=== PATIENT | female | born 1950 | race Caucasian/White ===

== ENCOUNTER 2016-08-08 12:13 | Emergency (ER) | payer OTHER, BC ==
--- NOTE | 2016-08-08 12:58 | EDPHY ---
H & P Time Seen by Provider: 08/08/16 12:40 HPI/ROS: HPI: 58-year-old female presents to emergency department with chief concern left groin pain that is 8/10 and onset suddenly last night. Pain radiates from the left groin to the left outer hip. It is worse with ambulation. She has taken [place] with some relief. She has a history of left foot fracture 7 months ago, with increase of pain and swelling 1 month ago. Saw their orthopedist Dr. Slater who x-rayed the left foot and did not find an occult or stress fracture. Walked 1.5 miles yesterday in the orthopedic walking boot. Denies fever, chills , myalgias, URI symptoms, shortness of breath, chest pain, abdominal pain, nausea, vomiting, left calf pain, recent travel, history of coagulopathy. History of profound anxiety. ROS:10 point review of systems is negative other than as stated in HPI Past Medical/Surgical History: Left foot fracture, anxiety, rectal prolapse surgery with complications Social History: Smoking Status: Never smoked Physical Exam: Vital signs stable, reviewed by me General: Awake, alert, calm, cooperative. No acute distress. Head: Normalocephalic. Atraumatic. EENT: PERRLA. EOMI. Neck: Supple, nontender. No midline tenderness, full ROM. Respiratory: Breathing unlabored. Breath sounds clear to auscultation bilaterally. CV: Chest nontender, atraumatic. Heart rate regular. Distal pulses 2+. Brisk cap refill all extremities. GI: Deferred Neuro: Alert. Oriented x 3. Sensation intact all extremities. Skin: Skin warm, dry, intact. No ecchymosis, abrasions, or lacerations. Extremities: No discomfort to palpation of the left leg, left knee, left ankle. Full range of motion. Pain left groin. Left femoral pulse 2 +. No mass. Discomfort with external rotation only. No swelling or ecchymosis. No lymphadenopathy appreciated. Left foot with pain in the midfoot. Mild ecchymosis and swelling present. Positive mid foot torsion. Negative pain at the proximal 5th metatarsal. Strength 5+ left lower extremity. No discomfort of the left calf. Negative Homans. Constitutional: Initial Vital Signs Temperature (C) 36.5 C 08/08/16 12:18 Heart Rate 84 03/31/17 12:18 Respiratory Rate 20 08/08/16 12:18 Blood Pressure 145/84 H 08/08/16 12:18 O2 Sat (%) 96 08/08/16 12:18 O2 Delivery Mode Room Air Allergies/Adverse Reactions: promethazine [From Phenergan] Allergy (Verified 08/08/16 12:17) Sulfa (Sulfonamide Antibiotics) Allergy (Verified 08/08/16 12:17) Home Medications: Medication Instructions Recorded Ambien 08/08/16 Hydrocodone/APAP 5/325 [[place] 1 tab PO Q4H PRN #16 tab 08/08/16 5/325 (*)] Nortriptyline HCl 08/08/16 Xanax 08/08/16 traZODone 08/08/16 Medical Decision Making - Diagnostics Imagin. Left Foot , 2 portable views History:Pain without trauma. Findings: There is a subacute, healing, complex fracture of the distal second metatarsal shaft with surrounding periosteal new bone. Fracture lines are still visible. There is no angulation or displacement. There is a solidly healed distal fifth metatarsal fracture. 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 No acute fracture identified. Impression: Subacute healing second metatarsal shaft fracture. 2. Left Hip Technique: Portable AP pelvis and frog-leg left hip. Clinical Indications: Pain without trauma Findings: No fracture. Thickness of the hip joint is normal, with no sclerosis or significant osteophytes. No evidence of avascular necrosis. The SI joints look normal. There is erosive change on either side of the pubic symphysis. There are bilateral low pelvic surgical anastomoses. Impression: 1. Negative left hip 2. Might the patient's hip pain be referred from the pubic symphysis? Dictated By: Portillo Dwyer MD ED Course/Re-evaluation: 58-year-old female presents to ED with left groin pain. There is no ecchymosis or swelling. Pain is isolated to the left groin and radiates laterally to left hip. Pain is worse with ambulation and external rotation. She had recent left foot fracture 7 months ago with a re-injure of the site 1 month ago with ongoing swelling and pain. She walked 1.5 miles yesterday in a orthopedic boot. Pain onset suddenly last night. DP and PT pulses are 2+. Neurovascular status intact. No personal or family history of coagulopathy. No appreciable lymphadenopathy in the left groin. Differential Diagnosis: Differential diagnosis includes but is not limited to strain, fracture, dislocation, DVT, lymphadenopathy, lumbar radiculopathy, infection - Data Points Medications Given: Discontinued Medications Hydrocodone Bitart/Acetaminophen ([place] 5/325) 1 tab PO EDNOW ONE Stop: 08/08/16 13:30 Last Admin: 08/08/16 13:32 Dose: 1 tab Departure - Departure Disposition: Home, Routine, Self-Care Clinical Impression: Left groin pain, subacute left foot fracture Condition: Good Instructions: Foot Fracture in Adults (ED), Groin Pain (ED) Additional Instructions: Plan: 400 mg ibuprofen every 6-8 hours with food for inflammation and pain, stay well hydrated while taking, may use for the next 3-4 days May use 1 [place] every 4-6 hours as needed for severe pain--Never drink or drive while taking this medication. This medication impairs decision making capacity so do not work or sign important documents while taking. This medication its constipating so drink plenty of fluids and consider an [id number] stool softener such as docusate sodium (Colace) while taking this medication. This medication has addictive properties. You should use the least amount for the shortest amount of time. [facility] ED and [facility]gent [facility] do not refill narcotic pain medication prescriptions. This is a hospital policy. You will need to follow up as indicated for recheck for further narcotic refills. Use cane for ambulation while pain persists, use your walking boot while up and about Follow up with your orthopedist Dr. Slater next week for recheck--When you call to schedule appointment, please let the office know you are an "ER follow up" appointment" For severe, unremitting, worsening symptoms return to emergency department Referrals: Kathia Cardozo MD [Primary Care Provider] - As per Instructions Prescriptions: Hydrocodone/APAP 5/325 [[place] 5/325 (*)] 1 tab PO Q4H PRN #16 tab PRN Reason: severe pain
[2016-08-08] MEDS ORDERED: HYDROCODONE/APAP 5/325 TAB ONE (13:27)
[2016-08-08] MEDS ORDERED: HYDROCODONE/APAP 5/325 TAB PO ONE (13:29)
[2016-08-08 14:25] VITALS: BP 165/105; PULSE 71; RESP 16; TEMP 98.1; O2SAT 95
== END 2016-08-08 14:25 | disposition home or self-care (01) ==
DX: R10.32 Left lower quadrant pain (principal); M79.672 Pain in left foot

== ENCOUNTER 2016-10-21 17:05 | Emergency (ER) | payer OTHER, BC ==
[2016-10-21] MEDS ORDERED: LORazepam 2 MG/ML INJ IVP ONE (17:31)
[2016-10-21] MEDS ORDERED: NS 1,000 ML IV ONE (17:31)
--- NOTE | 2016-10-21 17:31 | CPEKG ---
Heart Rate: 83 RR Interval: 723 P-R Interval: 164 QRSD Interval: 80 QT Interval: 380 QTC Interval: 447 P [place]: 67 QRS [place]: 64 T Wave [place]: 76 EKG Severity - NORMAL ECG - EKG Impression: SINUS RHYTHM Electronically Signed By: Ahmet Padilla 22-Oct-2016 16:53:49
[2016-10-21] MEDS ORDERED: HYDROmorphONE/DILAUDID 1 MG/ML SYR IVP ONE (17:32)
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
[2016-10-21 17:47] LABS: % IMMATURE GRANULYOCYTES 0.2 % (0.0-1.1); ABSOLUTE IMMATURE GRANULOCYTES 0.02 10^3/uL (0.00-0.10); ADD DIFF? NO; ADD MORPH? NO; ADD SCAN? NO; ATYPICAL LYMPHOCYTE FLAG 10 (0-99); FRAGMENT RBC FLAG 0 (0-99); HEMATOCRIT 39.1 % (38.0-47.0); HEMOGLOBIN 13.8 g/dL (12.6-16.3); LEFT SHIFT FLG 0 (0-99); LIPEMIA HEMOLYSIS FLAG 90 (0-99); MEAN CELL HEMOGLOBIN 33.4 pg (27.9-34.1); MEAN CELL HEMOGLOBIN CONCENTR. 35.3 g/dL (32.4-36.7); MEAN CELL VOLUME 94.7 fL (81.5-99.8); MEAN PLATELET VOLUME 9.9 fL (8.7-11.7); PLATELET CLUMPS FLAG 0 (0-99); PLATELET COUNT 205 10^3/uL (150-400); RED BLOOD CELL COUNT 4.13 10^6/uL (4.18-5.33); RED CELL DISTRIBUTION WIDTH 12.6 % (11.5-15.2)
[2016-10-21 17:58] LABS: ALANINE AMINOTRANSFERASE 29 IU/L (9-52); ALBUMIN 4.4 g/dL (3.5-5.0); ALKALINE PHOSPHATASE 60 IU/L (38-126); ANION GAP 10 mEq/L (8-16); ASPARTATE AMINOTRANSFERASE 27 IU/L (14-46); BILIRUBIN,TOTAL 0.6 mg/dL (0.1-1.4); BILIRUBIN-CONJUGATED 0.3 mg/dL (0.0-0.5); BILIRUBIN-UNCONJUGATED 0.3 mg/dL (0.0-1.1); CALCIUM 9.7 mg/dL (8.5-10.4); CARBON DIOXIDE 22 mEq/l (22-31); CHLORIDE 101 mEq/L (97-110); CREATININE 0.9 mg/dL (0.6-1.0); GLOMERULAR FILTRATION RATE > 60; GLUCOSE 67 mg/dL (70-100); POTASSIUM 4.1 mEq/L (3.5-5.2); SODIUM 133 mEq/L (134-144); TOTAL PROTEIN 7.1 g/dL (6.3-8.2)
[2016-10-21] MEDS ORDERED: IOPAMIDOL (ISOVUE 370) 100 ML BTL IV ONE (18:04)
[2016-10-21 18:10] LABS: TROPONIN I < 0.012 ng/mL (0-0.034)
[2016-10-21 18:22] LABS: APTT 26.9 SEC (23.0-38.0); PROTIME(PATIENT) 13.1 SEC (12.0-15.0)
[2016-10-21 19:28] VITALS: BP 135/99; PULSE 69; RESP 18; TEMP 98.1; O2SAT 100
== END 2016-10-21 19:27 | disposition home or self-care (01) ==
DX: S32.008A Other fracture of unspecified lumbar vertebra, initial encounter for closed fracture (principal); R55 Syncope and collapse; E86.0 Dehydration; W19.XXXA Unspecified fall, initial encounter; Y92.002 Bathroom of unspecified non-institutional (private) residence as the place of occurrence of the external cause
CPT/HCPCS: 71275; 72131; 93005; 96361; 96374; 96375; 99285; J1170; J2060; Q9967

== ENCOUNTER 2017-06-18 14:48 | Inpatient (IN) | payer OTHER, BC ==
[2017-06-18] MEDS ORDERED: ONDANSETRON 4 MG/2 ML VIAL ONE (15:00)
--- NOTE | 2017-06-18 15:11 | EDPHY ---
H & P Smoking Status: Never smoked Time Seen by Provider: 06/18/17 14:55 HPI/ROS: Chief complaint. Probable overdose HPI. Patient is 66-year-old female who only says "I am so sick ". She does not answer any questions. Her daughter is here with her and provides history. The daughter says that the patient has history of severe anxiety. The had prostate surgery yesterday and there has been increased anxiety in the household. Patient has had a history of chronic abdominal pain has had abdominal pain for the last 2-3 days. The daughter reports initially patient was constipated though now has had diarrhea. She has had decreased oral intake. At about 1:00 p.m. the patient was very anxious and went and took some or all of the medications. Daughter is not quite sure everything she took. There were no other medications of the that would have been taken. Doubt alcohol consumption. Patient apparently has a history of abdominal surgery and maybe was complicated by volvulus. At any rate she does have chronic abdominal pain. After the ingestion the patient's daughter notes that she began gradually less responsive. It is unknown whether this is an intentional or accidental overdose. She has had previous suicide ideation for attention. ROS Constitutional. Decreased responsiveness Eyes. no problems with vision ENT. no sore throat, no nasal drainage Cardiovascular. no chest pain Respiratory. no shortness of breath, no cough Abdominal. Abdominal pain and diarrhea . no problems urinating MS. no calf pain/swelling, no neck/back pain, no joint pain Skin. no rash Lymph. no swollen glands Neuro. Decreased responsiveness and difficulty walking. (Johnathan López) Past Medical/Surgical History: Anxiety and chronic abdominal pain (Johnathan López) Social History: , nonsmoker. Possible alcohol (Johnathan López) Physical Exam: General Appearance: Alert well-developed female repeating only "I am so sick " . Vital signs are stable Eyes: Pupils equal and round no pallor or injection. ENT, Mouth: Mucous membranes are moist. Respiratory: There are no retractions, lungs are clear to auscultation. Cardiovascular: Regular rate and rhythm. Gastrointestinal: Abdomen is soft and nontender, no masses, bowel sounds normal. Neurological: Awake and alert, sensory and motor exams grossly normal. Skin: Warm and dry, no rashes. Musculoskeletal: Neck is supple nontender. Extremities symmetrical, full range of motion. Psychiatric: Patient does not answer questions (Johnathan López) Constitutional: Initial Vital Signs Temperature (C) 36.9 C 06/18/17 15:00 Heart Rate 110 H 06/18/17 15:00 Respiratory Rate 13 06/18/17 15:00 Blood Pressure 115/75 06/18/17 15:00 O2 Sat (%) 85 L 06/18/17 15:00 O2 Delivery Mode Room Air O2 (L/minute) 2 Allergies/Adverse Reactions: promethazine [From Phenergan] Allergy (Verified 08/08/16 12:17) Sulfa (Sulfonamide Antibiotics) Allergy (Verified 08/08/16 12:17) Home Medications: Medication Instructions Recorded ALPRAZolam [Xanax 0.5 MG (*)] 0.5 mg PO QID 08/08/16 Nortriptyline HCl [Pamelor 50 mg 50 mg PO HS 08/08/16 (*)] Zolpidem Tartrate [Ambien] 15 mg PO HS 08/08/16 traZODone [traZODONE 100MG (*)] 400 mg PO HS 08/08/16 Escitalopram Oxalate [Lexapro] 30 mg PO DAILY 06/19/17 Gabapentin [Neurontin 300 MG (*)] 900 mg PO TID 06/19/17 Medical Decision Making - Diagnostics EKG Interpretation: EKG interpreted by me shows normal sinus rhythm normal interval and axis. QRS is normal there is no significant ST elevation or depression. There is no arrhythmia. The rate is 93 (Johnathan López) Imaging Results: Chest x-ray reviewed by me shows no evidence for pneumonia Abdominal x-ray shows moderate stool in the descending colon. No evidence for free air or air-fluid levels (Johnathan López S) Procedures: IV normal saline, monitor (Johnathan López S) ED Course/Re-evaluation: 3:30 p.m. patient now agitated and trying to climb out of bed. She is placed in 4 point restraints. She is given IV Ativan. I discussed this with her daughter who agrees Re-evaluation at 4:30 a.m. and patient is stable. I had further conversation with patient's son. We discussed laboratory evaluation, treatment plan. He expresses understanding and agreement At this point this appears to be alcohol intoxication complicated by anxiety Re-evaluation 7:30 p.m. patient is stable. Recheck blood alcohol is 0.180. Initial blood alcohol was 0.342 (Johnathan López) Other Provider: 2230 care assumed by me from Dr. López pending sober mental health evaluation. [address] Hadley pending mental health evaluation. Patient has had increasing agitation during my care. She has got medication with some relief. No other issues during my care. (Guillaume Arndt) Care Turn Over: care to Dr. Arndt at 2230 (Johnathan López) - Data Points Laboratory Results: Laboratory Results 06/18/17 15:01 06/18/17 15:01 Medications Given: Acetaminophen (Tylenol) 650 mg PO Q4HRS PRN PRN Reason: Pain, Mild Stop: 12/16/17 15:55 Last Admin: 06/20/17 09:14 Dose: 650 mg Alprazolam (Xanax) 0.5 mg PO QID [facility] Stop: 12/16/17 15:59 Last Admin: 06/20/17 06:18 Dose: 0.5 mg Escitalopram Oxalate (Lexapro) 30 mg PO DAILY [facility] Stop: 12/17/17 08:59 Last Admin: 06/20/17 08:43 Dose: 30 mg Gabapentin (Neurontin) 900 mg PO TID [facility] Stop: 12/16/17 15:59 Last Admin: 06/20/17 08:47 Dose: 900 mg Nortriptyline HCl (Pamelor) 50 mg PO [facility] Stop: 12/16/17 20:59 Last Admin: 06/19/17 23:09 Dose: 50 mg Quetiapine Fumarate (Seroquel) 100 mg PO Q4 PRN PRN Reason: Anxiety Stop: 12/16/17 17:59 Last Admin: 06/19/17 16:34 Dose: 100 mg Ropinirole HCl (Requip) 0.5 mg PO TID [facility] Stop: 12/16/17 21:59 Last Admin: 06/20/17 08:47 Dose: 0.5 mg Senna (Senokot) 1 tab PO BID PRN PRN Reason: Constipation Stop: 12/16/17 16:49 Last Admin: 06/19/17 23:09 Dose: 1 tab Zolpidem Tartrate (Ambien) 10 mg PO [facility] Stop: 12/16/17 20:59 Last Admin: 06/19/17 23:09 Dose: 10 mg Discontinued Medications Acetaminophen (Tylenol) 1,000 mg PO EDNOW ONE Stop: 06/18/17 23:39 Last Admin: 06/18/17 23:41 Dose: 1,000 mg Alprazolam (Xanax) 0.5 mg PO EDNOW ONE Stop: 06/19/17 07:45 Last Admin: 06/19/17 08:00 Dose: 0.5 mg Sodium Chloride (Ns) 1,000 mls @ 0 mls/hr IV EDNOW ONE; Wide Open PRN Reason: Protocol Stop: 06/18/17 15:14 Last Admin: 06/18/17 15:54 Dose: 1,000 mls Ibuprofen (Motrin) 600 mg PO EDNOW ONE Stop: 06/19/17 12:34 Last Admin: 06/19/17 12:38 Dose: 600 mg Lorazepam (Ativan Injection) 1 mg IVP EDNOW ONE Stop: 06/18/17 15:44 Last Admin: 06/18/17 15:53 Dose: 1 mg Lorazepam (Ativan Injection) 1 mg IVP EDNOW ONE Stop: 06/18/17 17:52 Last Admin: 06/18/17 18:51 Dose: 1 mg Lorazepam (Ativan) 1 mg PO EDNOW ONE Stop: 06/18/17 23:40 Last Admin: 06/18/17 23:41 Dose: 1 mg Lorazepam (Ativan) 1 mg PO EDNOW ONE Stop: 06/19/17 06:02 Last Admin: 06/19/17 06:04 Dose: 1 mg Nortriptyline HCl (Pamelor) 10 mg PO HS ONE Stop: 06/19/17 02:12 Last Admin: 06/19/17 02:57 Dose: 10 mg Olanzapine (Zyprexa Zydis) 15 mg PO EDNOW ONE Stop: 06/19/17 08:36 Last Admin: 06/19/17 08:41 Dose: 15 mg Olanzapine (Olanzapine) 10 mg PO ONCE ONE Stop: 06/19/17 11:19 Last Admin: 06/19/17 11:37 Dose: 10 mg Ondansetron HCl (Zofran) 4 mg IVP EDNOW ONE Stop: 06/18/17 18:47 Last Admin: 06/18/17 18:51 Dose: 4 mg Ondansetron HCl (Zofran) 4 mg IVP EDNOW ONE Stop: 06/18/17 20:50 Last Admin: 06/18/17 20:54 Dose: Not Given Ondansetron HCl (Zofran Odt) 4 mg PO EDNOW ONE Stop: 06/18/17 20:59 Last Admin: 06/18/17 21:03 Dose: 4 mg Trazodone HCl (Trazodone) 50 mg PO EDNOW ONE Stop: 06/19/17 02:13 Last Admin: 06/19/17 02:57 Dose: 50 mg Trazodone HCl (Trazodone) 50 mg PO EDNOW ONE Stop: 06/19/17 03:34 Last Admin: 06/19/17 03:42 Dose: 50 mg Zolpidem Tartrate (Ambien) 5 mg PO EDNOW ONE Stop: 06/19/17 02:13 Last Admin: 06/19/17 02:57 Dose: 5 mg Zolpidem Tartrate (Ambien) 5 mg PO EDNOW ONE Stop: 06/19/17 03:34 Last Admin: 06/19/17 03:42 Dose: 5 mg Departure - Departure Disposition: [facility] Clinical Impression: Suicidal ideation Alcohol intoxication Qualifiers: Complication of substance-induced condition: with unspecified complication Qualified Code(s): F10.929 - Alcohol use, unspecified with intoxication, unspecified Condition: Fair
[2017-06-18] MEDS ORDERED: NS 1,000 ML IV ONE (15:13)
[2017-06-18 15:21] LABS: PLATELET COUNT 267 10^3/uL (150-400)
[2017-06-18] MEDS ORDERED: LORazepam 2 MG/ML INJ ONE (15:42)
[2017-06-18] MEDS ORDERED: LORazepam 2 MG/ML INJ IVP ONE ×2 (15:43→17:51)
[2017-06-18] MEDS ORDERED: ONDANSETRON 4 MG/2 ML VIAL IVP ONE ×2 (18:46→20:49)
[2017-06-18] MEDS ORDERED: ONDANSETRON DISINTEGRATING 4 MG TAB PO ONE (20:58)
[2017-06-18] MEDS ORDERED: ACETAMINOPHEN 500 MG TAB ONE (23:37)
[2017-06-18] MEDS ORDERED: ACETAMINOPHEN 500 MG TAB PO ONE (23:38)
[2017-06-18] MEDS ORDERED: LORazepam 1 MG TAB PO ONE (23:39)
[2017-06-19] MEDS ORDERED: NORTRIPTYLINE HCL 10 MG CAP PO ONE (02:11)
[2017-06-19] MEDS ORDERED: traZODone 50 MG TAB PO ONE ×2 (02:12→03:33)
[2017-06-19] MEDS ORDERED: ZOLPIDEM TARTRATE 5 MG TAB PO ONE ×2 (02:12→03:33)
[2017-06-19] MEDS ORDERED: LORazepam 1 MG TAB PO ONE (06:01)
[2017-06-19] MEDS ORDERED: ALPRAZolam 0.25 MG TAB PO ONE (07:44)
[2017-06-19] MEDS ORDERED: OLANZapine DISINTEGR 10 MG TAB PO ONE (08:35)
[2017-06-19] MEDS ORDERED: OLANZapine DISINTEGR 5 MG TAB ONE (08:37)
[2017-06-19] MEDS ORDERED: OLANZapine 5 MG TAB PO ONE (11:18)
[2017-06-19] MEDS ORDERED: IBUPROFEN 600 MG TAB PO ONE (12:33)
[2017-06-19] MEDS ORDERED: MAG HYDROX/AL HYDROX/SIMETH 30 ML UDCUP PO PRN (15:56)
[2017-06-19] MEDS ORDERED: MAGNESIUM HYDROXIDE 30 ML UDCUP PO PRN (15:56)
[2017-06-19] MEDS: GABAPENTIN 300 MG CAP PO SCH ×3 (16:08→23:10)
[2017-06-19] MEDS: ALPRAZolam 0.5 MG TAB PO SCH ×3 (16:08→23:10)
[2017-06-19] MEDS ORDERED: QUEtiapine FUMARATE 100 MG TAB PO PRN (16:21)
[2017-06-19] MEDS: ACETAMINOPHEN 325 MG TAB PO PRN ×2 (16:22→19:09)
[2017-06-19] MEDS ORDERED: POLYETHYLENE GLYCOL 3350 17 GM PKT PO PRN (16:49)
[2017-06-19] MEDS ORDERED: SENNOSIDES 1 TAB PO PRN (16:50)
--- NOTE | 2017-06-19 18:32 | BAPA ---
[f rep st] ADMISSION PSYCHIATRIC ASSESSMENT DATE OF SERVICE: 06/19/2017 CHIEF COMPLAINT: "I have extreme anxiety, I'm going out of my mind." HISTORY OF PRESENT ILLNESS: Patient is a 66-year-old female brought into the emergency dep artment by family due to an acute decompensation and what appears to be severe anxiety. She was foun d at home pacing, flailing her arms, wailing, and unable to calm herself. She apparently had drank a lcohol excessively the night before, and her children think this could have contributed to her issue. While visiting with their mother, her son and daughter state that she took a large amount of her me dications in an attempt to further calm herself. This included Xanax and Lexapro as well as gabapent in. They then brought her to the hospital as she had mentioned being suicidal. In the emergency department, she did endorse thoughts of suicide but stated that she did not want to be in the hospital because, when she went to the hospital at [facility] 2 years ago, it "made m e worse." She was placed on an M1 hold, admitted anyway due to her ongoing unremitting agitated stat e and previous statements regarding suicide. I evaluated her this afternoon, and she is still very a gitated. She is pacing around her room; shaking her arms, legs, and hands; flailing; and wailing thr oughout the attempted interview. She states that she is in pain in her lower and upper extremities a nd her tailbone which she states she injured somehow. She also states that she is "severely anxious" and is unable to calm herself down. I asked for her to sit. She states she cannot due to her agita tion and her tailbone pain. She is unable to answer questions in a meaningful manner, just stating r epeatedly that she is anxious, needs to leave, and that the hospital is making her worse. I reflect to her that she came from home because she was not doing well at home and that we needed to figure ou t what is going on with her. She is not accepting of this, stating that she is dying, and that she c annot calm down. I did review with her current medication regimen including Xanax, gabapentin, and L exapro. We restarted these along with her Requip and bowel regimen. We hope to see benefit from joey t, and I have assured her that we will monitor her closely. I have also indicated to her that we linda l speak with Dr. Portillo Coyne, her outpatient psychiatrist, as soon as possible. PAST PSYCHIATRIC HISTORY: Significant for the [address] [facility] in for similar symptoms. She sees Dr. Portillo Coyne in his office in [place] and [place], the [facility], in the same office. The patient insists that she had no psychiatric problems prior to 3 yea rs ago when she they moved from [place] to [place]. ALLERGIES: Listed to promethazine and sulfa. CURRENT MEDICATIONS: Include gabapentin 900 mg t.i.d., trazodone 400 mg h.s., Xanax 0.5 mg q.i.d., L exapro 30 mg daily, nortriptyline 50 mg at h.s., and zolpidem 15 mg at h.s. PAST MEDICAL HISTORY: Significant for chronic abdominal pain. She denies any other chronic physical illnesses. It is unclear what the injury to her coccyx could be. SOCIAL HISTORY: Patient is , lives in [place] with her . They apparently did move fr [facility] to [place] 3 years ago, though she is unable to explain why, the circumstances of thi s, or why it has been so difficult for her. They have 2 adult children, a son and a daughter, who li ve locally and are their supports. The remainder of her social history is unknown to me as she is un able to relate it at this time despite repeated questioning. She denies regular alcohol use though r ecord from [facility] indicates that she does drink on a regular basis, and her acts as the gate antonio per for her alcohol use. He apparently was gone for 1 night because of having surgery, and she over consumed alcohol. She denies ever having any alcohol withdrawal. Her BAL in the emergency departmen was 342 at 1501 on 06/18/2017. MENTAL STATUS EXAMINATION: Reveals an extremely thin female who is very agitated. She is wearing loose fitting clothes and pacing around the room constantly. She shakes her legs, hands, and arms in an exaggerated manner while wailing. Her vocalizations crescendo at times and sound like sq ueals or even cries. She states constantly that she is dying, that she is anxious, and that she nubia ot make herself feel better. She repeatedly requests additional medication. Her affect is otherwise constricted stable and appropriate. Her mood is described as "terrible." She is alert and oriented to person, place, time, and situation, and her sensorium is clear. There is no evidence of delirium , intoxication, or withdrawal. Her thought process is linear though perseverative on the themes of p ain and anxiety. Her thought content reveals no evidence of delusions or hallucinations. Her intell ect appears to be average as evidenced by her fund of knowledge and vocabulary with limited understan ding of her occupational and educational histories. She reported suicidal ideations several times to the [facility] staff in the emergency department and her family in the past day and a half, but she denies this to me now. Her insight and judgment appear to be impaired. IMPRESSION: Anxiety disorder, not otherwise specified. Possible major depressive disorder. Possibl e generalized anxiety disorder. Possible neurologic syndrome including restless legs versus some aty pical akathisia. Alcohol use disorder, severe; possible alcohol withdrawal; possible mixed sedative abuse or withdrawal. Patient is a 66-year-old female with a mixed picture of anxiety and history of possible dep ression. She presents at this time in a very agitated state. It is difficult to separate whether th is is physiologic, neurologic, psychiatric, psychological, or character based. It appears there may be a bit of all of that. I also question whether she may have an eating disorder though, if she does , I am sure it is longstanding. PLAN: 1. Admit to behavioral health services inpatient unit on an M1 hold. 2. Monitor closely to help better understand the differential diagnosis and clinical picture and dir ect further treatment. 3. Await a call back from Dr. Portillo Coyne in regard to potential interventions and help further my understanding of the clinical picture. 4. I will involve family actively in her care as they will certainly be the best informants in regar d to her current state and her history. 5. We will continue her outpatient medications as previously prescribed for now and make adjustments after discussing with Dr. Coyne. 6. Estimated length of stay is 3-5 days. /[id number]/MODL
[2017-06-19] MEDS ORDERED: NON-FORMULARY NEW DRUG (Zolpidem Tartrate [Ambien] 10 MG) PO SCH (21:00)
[2017-06-19] MEDS: ZOLPIDEM TARTRATE 5 MG TAB PO SCH ×2 (22:29→23:09)
[2017-06-19] MEDS: NORTRIPTYLINE HCL 50 MG CAP PO SCH ×2 (22:29→23:09)
[2017-06-20] MEDS: ALPRAZolam 0.5 MG TAB PO SCH ×4 (06:18→22:41)
[2017-06-20] MEDS: ESCITALOPRAM OXALATE 10 MG TAB PO SCH (08:43)
[2017-06-20] MEDS: GABAPENTIN 300 MG CAP PO SCH ×3 (08:47→22:45)
[2017-06-20] MEDS: ACETAMINOPHEN 325 MG TAB PO PRN ×2 (09:14→16:51)
--- NOTE | 2017-06-20 16:05 | SOAPPROG ---
SOAP Progress Note Assessment/Plan: Assessment: 66 yo female with h/o alcohol dependence, benzodiazepine dependence and mood instability. Plan: 06/20/17 16:02 1. Continue CIWA, scored 9 this AM, 4 points for anxiety which seems to be her biggest complaint. She is getting xanax and gabapentin for anxiety. 2. Will order Vitamin B12 which patient was taking at home, per her request. 3. Complaining of pain in her coccyx. She had Xray in ED which did not show any fracture, herniation or compression. Subjective: Met with patient, reviewed chart and d/w staff. Patient c/o pain in lower back which was evaluated in ED. Patient says they told her she "bruised" her coccyx. There were no acute findings on Xray. Patient denies any s/s of w/d except for WATT and anxiety, no sweats, tremors, chills, N/V, VH. She also c/o sore throat and would like to take a cough drop. Patient is very focused on somatic complaints and getting a pill or medication to soothe her. She denies any SI/HI , she appears less agitated and not as restless as yesterday. She is not pacing or fidgeting as much. She is calmer when other people are around. MD observed her in group therapy and during family visit and she presented much different than 1:1. She was calm, smiled at times, appeared more relaxed and in less distress. Objective: Vital Signs Temp Pulse Resp BP Pulse Ox 37.0 C 89 16 149/73 H 97 06/20/17 15:00 06/20/17 15:00 06/20/17 15:00 06/20/17 15:00 06/20/17 15:00 06/19/17 06/20/17 06/21/17 05:59 05:59 05:59 Intake Total 400 Balance 400 MSE: Affect: Euthymic Mood: "Anxious" TP: Linear, perseverative TC: Denies any SI/HI, no AH/VH Insight/Judgment: Poor - Time Spent With Patient Time Spent With Patient: 20" - Pending Discharge Pending Discharge Within 24 Hours: No Pending Discharge Within 48 Hours: No ICD10 Worksheet Patient Problems: Problems Problem Status Onset Alcohol intoxication Acute Suicidal ideation Acute
[2017-06-20] MEDS ORDERED: CEPACOL LOZENGE PO PRN (16:10)
[2017-06-20] MEDS: CYANO/VITAMIN B12 1000 MCG TAB PO SCH (17:42)
[2017-06-20] MEDS: IBUPROFEN 600 MG TAB PO PRN (19:22)
[2017-06-20] MEDS: ZOLPIDEM TARTRATE 5 MG TAB PO SCH (22:42)
[2017-06-20] MEDS: NORTRIPTYLINE HCL 50 MG CAP PO SCH (22:42)
[2017-06-21] MEDS: ALPRAZolam 0.5 MG TAB PO SCH ×5 (04:20→20:50)
[2017-06-21] MEDS: IBUPROFEN 600 MG TAB PO PRN ×3 (04:33→20:51)
[2017-06-21] MEDS: CYANO/VITAMIN B12 1000 MCG TAB PO SCH (08:45)
[2017-06-21] MEDS: ESCITALOPRAM OXALATE 10 MG TAB PO SCH (08:45)
[2017-06-21] MEDS: GABAPENTIN 300 MG CAP PO SCH ×3 (08:47→20:50)
[2017-06-21] MEDS: QUEtiapine FUMARATE 50 MG TAB PO PRN ×3 (10:33→20:57)
[2017-06-21] MEDS ORDERED: THIAMINE HCL 100 MG TAB PO ONE (15:28)
--- NOTE | 2017-06-21 15:55 | SOAPPROG ---
SOAP Progress Note Assessment/Plan: Assessment: 66 yo female with h/o alcohol dependence, benzodiazepine dependence and mood instability. Plan: 06/20/17 16:02 1. Continue CIWA, scored 9 this AM, 4 points for anxiety which seems to be her biggest complaint. She is getting xanax and gabapentin for anxiety. 2. Will order Vitamin B12 which patient was taking at home, per her request. 3. Complaining of pain in her coccyx. She had Xray in ED which did not show any fracture, herniation or compression. 06/21/17 15:41 1. Continue on CIWA, patient scored 18 this AM. She scored for the followin points for anxiety which the patient "always" has not just when she is in withdrawal, sensitivity to light and tremors (which she claims she also has "a lot" at home even when drinking, so it's not clear what is withdrawal related and what is her baseline state of anxiety/agitation). 2. Patient also had alarmingly elevated BP this AM: 199/97 and 182/81. This may be anxiety-related and/or withdrawal-related. As a precaution, I ordered Clonidine 0.1mg q1h PRN for SBP > 160 or DBP > 100. 3. Patient disclosed that she had been drinking more than previously reported 2- 5 glasses of wine/day. Her reports that she is also drinking "hard liquor" too, though amount is unclear. 4. Ordered Librium per [facility] protocol as well as MVI, Thiamine and Folate. 5. Patient reports "some relief" from Xanax, Gabapentin and Seroquel PRN. MD decreased amount of Seroquel from 100mg to 50mg since patient is using it every 4 hrs even though it's PRN. MD did explain risks associated with using SGA for anxiety, including increased risk of TD, NMD, acute dystonia, EPS, CVA. Patient wants to continue taking Seroquel b/c it is "helping." 6. strongly recommends treatment for alcohol and benzo dependence including [facility] individual therapy as well as CD IOP. However, patient is not interested in treatment for substance use disorder at this time. She is not even willing to contemplate the possibility of stopping drinking and titrating off benzodiazepines. explained that xanax is the worst possible benzo for her to be abusing b/c it causes worst rebound anxiety, worst w/d and the easiest to develop tolerance. 7. Will need f/u appts scheduled with OP providers, Dr. Coyne and therapist. Subjective: Met with patient, reviewed chart and d/w staff. Patient reports "terrible" anxiety this AM, c/o tremors, sensitivity to light, feeling restless and "nervous." Patient scored 18 on CIWA mostly for anxiety and had very elevated BP this AM. MD ordered Librium per CIWA as well as clonidine PRN for BP. Patient reported feeling "better" after taking PRN Seroquel this AM and again this afternoon. She is also complaining of soreness when she sits down b/c of "bruising" of her coccyx. She said the Motrin is "helping." Objective: Vital Signs Temp Pulse Resp BP Pulse Ox 36.7 C 87 14 182/81 H 96 06/21/17 12:00 06/21/17 12:00 06/21/17 04:00 06/21/17 08:00 06/21/17 04:00 06/20/17 06/21/17 06/22/17 05:59 05:59 05:59 Intake Total 400 Balance 400 MSE: Affect: Anxious Mood: "Terrible" d/t "anxiety" TP: Linear TC: Denies any SI/HI, no AH/VH Insight/Judgment: Poor - Time Spent With Patient Time Spent With Patient: 25" - Pending Discharge Pending Discharge Within 24 Hours: No Pending Discharge Within 48 Hours: No ICD10 Worksheet Patient Problems: Problems Problem Status Onset Alcohol intoxication Acute Suicidal ideation Acute
[2017-06-21] MEDS: chlordiazePOXIDE 25 MG CAP PO PRN (16:22)
[2017-06-21] MEDS: NORTRIPTYLINE HCL 50 MG CAP PO SCH (20:49)
[2017-06-21] MEDS: ZOLPIDEM TARTRATE 5 MG TAB PO SCH (21:34)
[2017-06-22] MEDS: QUEtiapine FUMARATE 50 MG TAB PO PRN ×3 (02:07→10:05)
[2017-06-22] MEDS: ACETAMINOPHEN 325 MG TAB PO PRN ×3 (02:09→16:23)
[2017-06-22] MEDS: IBUPROFEN 600 MG TAB PO PRN ×3 (05:18→19:27)
[2017-06-22] MEDS: ALPRAZolam 0.5 MG TAB PO SCH ×4 (05:18→20:35)
[2017-06-22] MEDS: GABAPENTIN 300 MG CAP PO SCH ×3 (08:33→22:50)
[2017-06-22] MEDS: ESCITALOPRAM OXALATE 10 MG TAB PO SCH (08:34)
[2017-06-22] MEDS: FOLIC ACID 1 MG TAB PO SCH (08:34)
[2017-06-22] MEDS: THIAMINE HCL 100 MG TAB PO SCH (08:35)
[2017-06-22] MEDS: MULTIVITAMINS 1 EACH TAB PO SCH (08:35)
[2017-06-22] MEDS: CYANO/VITAMIN B12 1000 MCG TAB PO SCH (08:35)
[2017-06-22] MEDS: chlordiazePOXIDE 25 MG CAP PO PRN (14:56)
[2017-06-22] MEDS: QUEtiapine FUMARATE 25 MG TAB PO PRN (14:56)
--- NOTE | 2017-06-22 17:55 | SOAPPROG ---
SOAP Progress Note Assessment/Plan: Assessment: Plan: 06/22/17 17:56 Anxiety/agitation: Pt remains anxious, but notably improved. She notes benefit from SQL without obvious worsening of any akathisia. She continues to exhibit a high level of med-seeking behavior. Will continue SQL as previous described, start scheduled Librium taper, continue alprazolam, gabapentin and zolpidem for now with stated goal to decrease overall benzo burden. Continue escitalopram. Subjective: Pt seen, discussed with staff, chart reviewed, case discussed at length with Dr Atkins, Dr. Coyne and Molly Garcia. She is much calmer today. Able to sit in my office and converse appropriately. I reviewed the plan for her meds with her and she became visibly anxious, hyperventilating, fidgeting when I discussed recommendation for her to be off of Seroquel. She states she slept last night for the first time in a long time and attributes this to SQL. I discussed with her that the outpatient team including her neurologist believe any antipsychotic may increase her akathisia. She insists on staying on some amount of SQL. We agree to decrease the PRN to 25mg and keep 50mg at HS. I also discussed with her the potential negative interactions of trazodone with some of her meds to cause a buildup of a noxious metabolite that can worsen anxiety. She agrees to stay on a voluntary basis to work out meds and also to having a family meeting. I asked her again about her drinking and she insists she doesn't drink more than one small glass of wine per day. Objective: Vital Signs Temp Pulse Resp BP Pulse Ox 36.3 C 84 16 152/74 H 97 06/22/17 02:21 06/22/17 14:00 06/22/17 14:00 06/22/17 14:00 06/22/17 14:00 MSE: Calm at first, anxious as we speak. Affect is constricted, stable, approp. Mood is "better." TP linear, though perseverative; less somatic. TC reveals no psychosis. Denies SI. - Time Spent With Patient Time Spent With Patient: 25" ICD10 Worksheet Patient Problems: Problems Problem Status Onset Alcohol intoxication Acute Suicidal ideation Acute
[2017-06-22] MEDS: chlordiazePOXIDE 25 MG CAP PO SCH (20:36)
[2017-06-22] MEDS: QUEtiapine FUMARATE 50 MG TAB PO SCH (22:50)
[2017-06-22] MEDS: ZOLPIDEM TARTRATE 5 MG TAB PO SCH (22:50)
[2017-06-22] MEDS: NORTRIPTYLINE HCL 50 MG CAP PO SCH (22:50)
[2017-06-23] MEDS: ALPRAZolam 0.5 MG TAB PO SCH ×4 (06:11→21:19)
[2017-06-23] MEDS: IBUPROFEN 600 MG TAB PO PRN ×2 (06:15→16:06)
[2017-06-23] MEDS: QUEtiapine FUMARATE 25 MG TAB PO PRN ×2 (06:50→11:50)
[2017-06-23] MEDS: ACETAMINOPHEN 325 MG TAB PO PRN (08:55)
[2017-06-23] MEDS: ESCITALOPRAM OXALATE 10 MG TAB PO SCH (09:55)
[2017-06-23] MEDS: chlordiazePOXIDE 25 MG CAP PO SCH ×2 (09:57→21:18)
[2017-06-23] MEDS: CYANO/VITAMIN B12 1000 MCG TAB PO SCH (09:57)
[2017-06-23] MEDS: GABAPENTIN 300 MG CAP PO SCH ×3 (09:57→21:19)
[2017-06-23] MEDS: FOLIC ACID 1 MG TAB PO SCH (09:58)
[2017-06-23] MEDS: MULTIVITAMINS 1 EACH TAB PO SCH (09:58)
[2017-06-23] MEDS: THIAMINE HCL 100 MG TAB PO SCH (09:58)
--- NOTE | 2017-06-23 16:46 | SOAPPROG ---
SOAP Progress Note Assessment/Plan: Assessment: Plan: 06/22/17 17:56 Anxiety/agitation: Pt remains anxious, but notably improved. She notes benefit from SQL without obvious worsening of any akathisia. She continues to exhibit a high level of med-seeking behavior. Will continue SQL as previous described, start scheduled Librium taper, continue alprazolam, gabapentin and zolpidem for now with stated goal to decrease overall benzo burden. Continue escitalopram. 06/23/17 16:47 Anxiety: Much improved overall. See this as combination of situational stressor of 's illness, excessive alcohol use and some degree of withdrawal, and lack of effective coping as well as lack of positive outlets for anxiety and productivity. Will CCM, likely d/c tomorrow if all is well. Subjective: Pt seen, discussed with staff. I met with patient individually and then with and son. She reports feeling "much better" overall and attributes this to the SQL. Family confronted her about her drinking, reporting that they found several bottles of hard liquor in her closet when they went to get her clothes. She states she had the [employer] worker take her to the liquor store about a month ago. I emphasized that I strongly recommend she abstain from any alcohol consumption whatsoever. She agrees to this. We then discussed how she could increase her socialization and activity level to increase her enjoyment/fulfillment. She reports being motivated for this. Reviewed with her and her family the plan for the medications including tapering the Librium after d/c. Objective: Vital Signs Temp Pulse Resp BP Pulse Ox 36.3 C 89 16 179/83 H 97 06/23/17 06:52 06/23/17 13:45 06/23/17 13:45 06/23/17 13:45 06/23/17 13:45 MSE: Moderately anxious, but appropriate. Affect is o/w constricted, stable, approp. Mood is "a lot better." TP linear. TC reveals no psychosis. Denies SI. - Time Spent With Patient Time Spent With Patient: 55" ICD10 Worksheet Patient Problems: Problems Problem Status Onset Alcohol intoxication Acute Suicidal ideation Acute
[2017-06-23] MEDS: QUEtiapine FUMARATE 50 MG TAB PO SCH (21:19)
[2017-06-23] MEDS: ZOLPIDEM TARTRATE 5 MG TAB PO SCH (21:19)
[2017-06-23] MEDS: NORTRIPTYLINE HCL 50 MG CAP PO SCH (21:19)
[2017-06-24] MEDS: QUEtiapine FUMARATE 25 MG TAB PO PRN ×3 (00:22→12:00)
[2017-06-24 00:34] VITALS: PULSE 89; RESP 16; TEMP 97.7; O2SAT 98
[2017-06-24] MEDS: ALPRAZolam 0.5 MG TAB PO SCH ×2 (05:20→11:59)
[2017-06-24] MEDS: GABAPENTIN 300 MG CAP PO SCH (08:33)
[2017-06-24] MEDS: ESCITALOPRAM OXALATE 10 MG TAB PO SCH (08:34)
[2017-06-24] MEDS: THIAMINE HCL 100 MG TAB PO SCH (08:35)
[2017-06-24] MEDS: FOLIC ACID 1 MG TAB PO SCH (08:35)
[2017-06-24] MEDS: CYANO/VITAMIN B12 1000 MCG TAB PO SCH (08:35)
[2017-06-24] MEDS: MULTIVITAMINS 1 EACH TAB PO SCH (08:36)
[2017-06-24] MEDS: chlordiazePOXIDE 25 MG CAP PO SCH (08:36)
[2017-06-24] MEDS: IBUPROFEN 600 MG TAB PO PRN (08:37)
[2017-06-24 12:00] VITALS: BP 180/98
== END 2017-06-24 12:50 | disposition home or self-care (01) | DRG 880 ==
LOC: BBEH 06-19 13:43
PROVIDERS: ADMIT Psychiatry & Neurology Psychiatry; ATTEND Psychiatry & Neurology Psychiatry
DX: F41.9 Anxiety disorder, unspecified (principal); F10.229 Alcohol dependence with intoxication, unspecified; F13.20 Sedative, hypnotic or anxiolytic dependence, uncomplicated; M53.3 Sacrococcygeal disorders, not elsewhere classified; J02.9 Acute pharyngitis, unspecified
CPT/HCPCS: 80305; 96374; G0480; J2060; J2405

== ENCOUNTER 2017-10-24 19:20 | Emergency (ER) | payer OTHER, BC ==
--- NOTE | 2017-10-24 19:38 | EDPHY ---
H & P Stated Complaint: ABd pain x3 days, diarrhea, colon hx, "cant eat" Time Seen by Provider: 10/24/17 19:29 HPI/ROS: CHIEF COMPLAINT: Abdominal pain x3 days HISTORY OF PRESENT ILLNESS: 67-year-old female arrives via private vehicle with complaining 3 days of abdominal pain and decreased appetite. No nausea or vomiting. Bowel movements normal. Passing gas as normal. Sober from alcohol for 3 months. History of alcoholism. History of chronic abdominal pain secondary to multiple abdominal surgeries to colon. Denies urinary abnormality. Denies nausea or vomiting. Denies fever chills. Denies trauma. REVIEW OF SYSTEMS: A ten point review of systems was performed and is negative with the exception of the items mentioned in the HPI PAST MEDICAL & SURGICAL HISTORY: Alcoholism. Chronic abdominal pain. Self- reported volvulus history, unconfirmed. SOCIAL HISTORY:Denies alcohol use, states last drink of alcohol was 4 months ago. PHYSICAL EXAM (Prior to examination, patient consented to physical exam, hands were washed and my usual and customary physical exam procedures followed) 1) GENERAL: Well-developed, well-nourished, alert and oriented. Appears to be in no acute distress. 2) HEAD: Normocephalic, atraumatic 3) HEENT: Pupils equal, round, reactive to light bilaterally. Sclera anicteric. Nasopharynx, oropharynx, clear, no lesions. Ears bilaterally with normal tympanic membranes. 4) NECK: Full range of motion, no meningeal signs. 5) LUNGS: Clear auscultation bilaterally, no wheezes, no rhonchi, no retractions. 6) HEART: Regular rate and rhythm, no murmur, no heave, no gallop. 7) ABDOMEN: Diffusely tender to palpation all quadrants. No fluid wave. 8) MUSCULOSKELETAL: Moving all extremities, no focal areas of tenderness, no obvious trauma. No peripheral edema or discoloration. 9) BACK: No CVA tenderness, no midline vertebral tenderness, no fluctuance, no step-off, no obvious trauma, no visual or palpable abnormality. 10) SKIN: No rash, no petechiae. 11) Psychiatric: Patient is oriented X 3, there is no agitation. 12) RECTAL (with tech Nahomy at bedside): No stool in the rectal vault DIFFERENTIAL DIAGNOSIS: My differential diagnosis includes, but is not limited to, acute appendicitis, acute cholecystitis, bowel obstruction, acute pancreatitis, ovarian torsion, ectopic , gastritis and urinary tract infection. The patient understands that this diagnosis is provisional and can never be 100% accurate. This is a partial list of diagnoses considered. These considerations are based on history, physical exam, past history and reassessment. - Personal History Current Tetanus Diphtheria and Acellular Pertussis (TDAP): Unsure - Medical/Surgical History Hx Asthma: No Hx Chronic Respiratory Disease: No Hx Diabetes: No Hx Cardiac Disease: No Hx Renal Disease: No Hx Cirrhosis: No Hx Alcoholism: No Hx HIV/AIDS: No Hx Splenectomy or Spleen Trauma: No Other PMH: rectal prolapse surg with complications/x2 bowel resections,. IBS, anxiety - Social History Smoking Status: Never smoked Constitutional: Initial Vital Signs Temperature (C) 36.6 C 10/24/17 19:22 Heart Rate 71 10/24/17 19:22 Respiratory Rate 19 10/24/17 19:22 Blood Pressure 173/79 H 10/24/17 19:22 O2 Sat (%) 95 10/24/17 19:22 O2 Delivery Mode Room Air Allergies/Adverse Reactions: promethazine [From Phenergan] Allergy (Verified 10/24/17 19:21) Sulfa (Sulfonamide Antibiotics) Allergy (Verified 10/24/17 19:21) Home Medications: Medication Instructions Recorded ALPRAZolam [Xanax 0.5 MG (*)] 0.5 mg PO QID 08/08/16 Nortriptyline HCl [Pamelor 50 mg 50 mg PO HS 08/08/16 (*)] Zolpidem Tartrate [Ambien] 15 mg PO HS 08/08/16 Escitalopram Oxalate [Lexapro 10 30 mg PO DAILY 06/19/17 MG] Gabapentin [Neurontin 300 MG (*)] 900 mg PO TID 06/19/17 Multivitamins [Multivitamin (*)] 1 each PO DAILY tab 06/24/17 QUEtiapine FUMARATE [Seroquel 25 25 mg PO Q4 PRN #30 tab 06/24/17 mg (*)] QUEtiapine FUMARATE [Seroquel 50 50 mg PO HS #30 tab 06/24/17 mg (*)] Sennosides [Senokot] 1 tab PO BID PRN tab 06/24/17 chlordiazePOXIDE [Librium 25 mg 25 mg PO BID 5 Days #5 cap 06/24/17 (*)] rOPINIRole HCL [Requip 0.25mg (RX)] 0.5 mg PO TID tab 06/24/17 Peg 3350/Na Sulf,Bicarb,Cl/KCl 1,000 ml PO ONCE #4000 ml 10/24/17 [Golytely (RX)] Medical Decision Making - Diagnostics Imaging Results: Imaging Impressions Abdomen CT 10/24/17 20:19 Impression: 1. Constipation. No CT findings for diverticulitis. No evidence for small bowel obstruction. 2. Multilevel degenerative change lumbar spine, most severe at L5-S1. Results called and discussed with Jordan Andrade PA-C on October 24, 2017 at 2048 hours. Images reviewed myself ED Course/Re-evaluation: 10:00 p.m.: Re-evaluation, resting comfortably other she does note increase in agitation anxiety. Will administer IV benzodiazepine. Her abdominal pain is controlled. Heart rate in the 80s. Discussed the case with secondary supervising physician Dr. Stephens in the ER. Patient has no surgical abdominal pathology. She is noted to be constipated. She has no stool in her rectal vault. Plan will be discharge home with enema, GoLYTELY. No evidence of bowel obstruction. - Data Points Laboratory Results: Laboratory Results 10/24/17 19:40 10/24/17 19:40 10/24/17 10/24/17 10/24/17 20:15 19:45 19:40 WBC RBC Hgb POC Hgb 13.3 gm/dL gm/dL (12.6-16.3) Hct POC Hct 39 % % (38-47) MCV MCH MCHC RDW Plt Count MPV Neut % (Auto) Lymph % (Auto) Grundy % (Auto) Eos % (Auto) Baso % (Auto) Nucleat RBC Rel Count Absolute Neuts (auto) Absolute Lymphs (auto) Absolute Monos (auto) Absolute Eos (auto) Absolute Basos (auto) Absolute Nucleated RBC Immature Gran % Immature Gran # POC Sodium 128 mEq/L L mEq/L (135-145) Sodium 128 mEq/L L mEq/L (135-145) POC Potassium 4.0 mEq/L mEq/L (3.3-5.0) Potassium 4.2 mEq/L mEq/L (3.3-5.0) POC Chloride 95 mEq/L L mEq/L (97-110) Chloride 95 mEq/L L mEq/L (97-110) Carbon Dioxide 23 mEq/l mEq/l (22-31) Anion Gap 10 mEq/L mEq/L (8-16) POC BUN 14 mg/dL mg/dL (7-23) BUN 14 mg/dL mg/dL (7-23) Creatinine 1.0 mg/dL mg/dL (0.6-1.0) POC Creatinine 1.1 mg/dL H mg/dL (0.6-1.0) Estimated GFR 55 Glucose 88 mg/dL mg/dL (70-100) POC Glucose 95 mg/dL mg/dL (70-100) Calcium 9.4 mg/dL mg/dL (8.5-10.4) Total Bilirubin 0.5 mg/dL mg/dL (0.1-1.4) Conjugated Bilirubin 0.3 mg/dL mg/dL (0.0-0.5) Unconjugated Bilirubin 0.2 mg/dL mg/dL (0.0-1.1) AST 26 IU/L IU/L (14-46) ALT 26 IU/L IU/L (9-52) Alkaline Phosphatase 95 IU/L IU/L (38-126) Total Protein 7.3 g/dL g/dL (6.3-8.2) Albumin 4.1 g/dL g/dL (3.5-5.0) Lipase 59 IU/L IU/L (23-300) Urine Color PALE YELLOW Urine Appearance CLEAR Urine pH 7.0 (5.0-7.5) Ur Specific Harvey 1.004 (1.002-1.030) Urine Protein NEGATIVE (NEGATIVE) Urine Ketones NEGATIVE (NEGATIVE) Urine Blood NEGATIVE (NEGATIVE) Urine Nitrate NEGATIVE (NEGATIVE) Urine Bilirubin NEGATIVE (NEGATIVE) Urine Urobilinogen NEGATIVE EU EU (0.2-1.0) Ur Leukocyte Esterase NEGATIVE (NEGATIVE) Urine RBC 3-5 /hpf H /hpf (0-3) Urine WBC 1-3 /hpf /hpf (0-3) Ur Epithelial Cells TRACE /lpf /lpf (NONE-1+) Amorphous Sediment PRESENT /hpf /hpf (NONE-1+) Urine Glucose NEGATIVE (NEGATIVE) Ethyl Alcohol < 10 mg/dL mg/dL (0-10) 10/24/17 19:40 WBC 5.35 10^3/uL 10^3/uL (3.80-9.50) RBC 4.02 10^6/uL L 10^6/uL (4.18-5.33) Hgb 12.5 g/dL L g/dL (12.6-16.3) POC Hgb Hct 36.1 % L % (38.0-47.0) POC Hct MCV 89.8 fL fL (81.5-99.8) MCH 31.1 pg pg (27.9-34.1) MCHC 34.6 g/dL g/dL (32.4-36.7) RDW 12.2 % % (11.5-15.2) Plt Count 240 10^3/uL 10^3/uL (150-400) MPV 9.6 fL fL (8.7-11.7) Neut % (Auto) 64.5 % % (39.3-74.2) Lymph % (Auto) 20.2 % % (15.0-45.0) Grundy % (Auto) 11.6 % % (4.5-13.0) Eos % (Auto) 2.2 % % (0.6-7.6) Baso % (Auto) 0.9 % % (0.3-1.7) Nucleat RBC Rel Count 0.0 % % (0.0-0.2) Absolute Neuts (auto) 3.45 10^3/uL 10^3/uL (1.70-6.50) Absolute Lymphs (auto) 1.08 10^3/uL 10^3/uL (1.00-3.00) Absolute Monos (auto) 0.62 10^3/uL 10^3/uL (0.30-0.80) Absolute Eos (auto) 0.12 10^3/uL 10^3/uL (0.03-0.40) Absolute Basos (auto) 0.05 10^3/uL 10^3/uL (0.02-0.10) Absolute Nucleated RBC 0.00 10^3/uL 10^3/uL (0-0.01) Immature Gran % 0.6 % % (0.0-1.1) Immature Gran # 0.03 10^3/uL 10^3/uL (0.00-0.10) POC Sodium Sodium POC Potassium Potassium POC Chloride Chloride Carbon Dioxide Anion Gap POC BUN BUN Creatinine POC Creatinine Estimated GFR Glucose POC Glucose Calcium Total Bilirubin Conjugated Bilirubin Unconjugated Bilirubin AST ALT Alkaline Phosphatase Total Protein Albumin Lipase Urine Color Urine Appearance Urine pH Ur Specific Harvey Urine Protein Urine Ketones Urine Blood Urine Nitrate Urine Bilirubin Urine Urobilinogen Ur Leukocyte Esterase Urine RBC Urine WBC Ur Epithelial Cells Amorphous Sediment Urine Glucose Ethyl Alcohol Medications Given: Discontinued Medications Lorazepam (Ativan Injection) 1 mg IVP EDNOW ONE Stop: 10/24/17 20:57 Last Admin: 10/24/17 20:58 Dose: 1 mg Lorazepam (Ativan Injection) 1 mg IVP EDNOW ONE Stop: 10/24/17 22:00 Last Admin: 10/24/17 22:02 Dose: 1 mg Point of Care Test Results: Chemistry 10/24/17 19:45 POC Sodium 128 mEq/L L mEq/L (135-145) POC Potassium 4.0 mEq/L mEq/L (3.3-5.0) POC Chloride 95 mEq/L L mEq/L (97-110) POC BUN 14 mg/dL mg/dL (7-23) POC Creatinine 1.1 mg/dL H mg/dL (0.6-1.0) POC Glucose 95 mg/dL mg/dL (70-100) ISTAT H&H 10/24/17 19:45 POC Hgb 13.3 gm/dL gm/dL (12.6-16.3) POC Hct 39 % % (38-47) Departure - Departure Disposition: Home, Routine, Self-Care Clinical Impression: Abdominal pain Qualifiers: Abdominal location: generalized Qualified Code(s): R10.84 - Generalized abdominal pain Constipation Qualifiers: Constipation type: unspecified constipation type Qualified Code(s): K59.00 - Constipation, unspecified Condition: Good Instructions: Constipation (ED), Acute Abdominal Pain (ED) Additional Instructions: Seek immediate medical attention if you develop new or worsening symptoms, if you develop fevers, chills, inability to tolerate oral intake or any other symptoms that concerns you. Referrals: Malcom Ponce MD [Medical Doctor] - As per Instructions Prescriptions: Peg 3350/Na Sulf,Bicarb,Cl/KCl [Golytely (RX)] 1,000 ml PO ONCE #4000 ml
[2017-10-24 20:10] LABS: PLATELET COUNT 240 10^3/uL (150-400)
[2017-10-24] MEDS ORDERED: IOPAMIDOL (ISOVUE-300) 100 ML BTL ONE (20:25)
[2017-10-24] MEDS ORDERED: LORazepam 2 MG/ML INJ ONE (20:55)
[2017-10-24] MEDS ORDERED: LORazepam 2 MG/ML INJ IVP ONE ×2 (20:56→21:59)
[2017-10-24 22:50] VITALS: BP 131/78
== END 2017-10-24 22:51 | disposition home or self-care (01) ==
DX: K59.00 Constipation, unspecified (principal)
CPT/HCPCS: 74177; 96374; 96376; 99285; J2060; Q9967; 82435-PO; 82565-PO; 82947-PO; 84132-PO; 84295-PO; 84520-PO; 85014-PO; G0480

== ENCOUNTER 2017-10-27 14:38 | Emergency (ER) | payer OTHER, BC ==
[2017-10-27] MEDS ORDERED: LORazepam 1 MG TAB PO ONE (16:05)
--- NOTE | 2017-10-27 16:05 | EDPHY ---
H & P Stated Complaint: GENERALIZED ABD PAIN/SEEN 2 DAYS AGO FOR SAME Time Seen by Provider: 10/27/17 15:50 HPI/ROS: CHIEF COMPLAINT: Abdominal pain and anxiety HISTORY OF PRESENT ILLNESS: 67-year-old female with anxiety and alcoholism presents with abdominal pain. She was seen in this emergency department 2 days ago for generalized abdominal pain. CT scan of the abdomen and pelvis revealed constipation. She was sent home with [facility]. She had a large amount of bowel movements and since then, she has continued to have abdominal pain, similar to prior IBS. The pain is associated with excessive anxiety. No fever , nausea, vomiting or diarrhea. REVIEW OF SYSTEMS: complete 10 point ROS negative except at noted in the HPI Source: Patient - Personal History Current Tetanus Diphtheria and Acellular Pertussis (TDAP): Yes - Medical/Surgical History Hx Asthma: No Hx Chronic Respiratory Disease: No Hx Diabetes: No Hx Cardiac Disease: No Hx Renal Disease: No Hx Cirrhosis: No Hx Alcoholism: No Hx HIV/AIDS: No Hx Splenectomy or Spleen Trauma: No Other PMH: rectal prolapse surg with complications/x2 bowel resections,. IBS, anxiety - Social History Smoking Status: Never smoked Alcohol Use: Heavy Additional Social History: - Physical Exam Exam: General Appearance: Alert, quite anxious, does not appear in pain Eyes: Pupils equal and round, no conjunctival pallor ENT, Mouth: Mucous membranes moist Neck: Normal inspection Respiratory: Lungs are clear to auscultation Cardiovascular: Regular rate and rhythm Gastrointestinal: Abdomen is soft, mild diffuse tenderness Neurological: A&O, nonfocal, normal gait Skin: Warm and dry, no rash Extremities: Nontender, no pedal edema Psychiatric: Anxious Constitutional: Initial Vital Signs Temperature (C) 36.7 C 10/27/17 14:47 Heart Rate 87 10/27/17 14:47 Respiratory Rate 16 10/27/17 14:47 Blood Pressure 154/91 H 10/27/17 14:47 O2 Sat (%) 96 10/27/17 14:47 O2 Delivery Mode Room Air Allergies/Adverse Reactions: promethazine [From Phenergan] Allergy (Verified 10/27/17 14:46) Sulfa (Sulfonamide Antibiotics) Allergy (Verified 10/27/17 14:46) Home Medications: Medication Instructions Recorded ALPRAZolam [Xanax 0.5 MG (*)] 0.5 mg PO QID 08/08/16 Nortriptyline HCl [Pamelor 50 mg 50 mg PO HS 08/08/16 (*)] Zolpidem Tartrate [Ambien] 15 mg PO HS 08/08/16 Escitalopram Oxalate [Lexapro 10 30 mg PO DAILY 06/19/17 MG] Gabapentin [Neurontin 300 MG (*)] 900 mg PO TID 06/19/17 Multivitamins [Multivitamin (*)] 1 each PO DAILY tab 06/24/17 QUEtiapine FUMARATE [Seroquel 25 25 mg PO Q4 PRN #30 tab 06/24/17 mg (*)] QUEtiapine FUMARATE [Seroquel 50 50 mg PO HS #30 tab 06/24/17 mg (*)] Sennosides [Senokot] 1 tab PO BID PRN tab 06/24/17 chlordiazePOXIDE [Librium 25 mg 25 mg PO BID 5 Days #5 cap 06/24/17 (*)] rOPINIRole HCL [Requip 0.25mg (RX)] 0.5 mg PO TID tab 06/24/17 Peg 3350/Na Sulf,Bicarb,Cl/KCl 1,000 ml PO ONCE #4000 ml 10/24/17 [Golytely (RX)] LORazepam [Ativan (RX)] 1 mg PO Q12 PRN #6 tab 10/27/17 Medical Decision Making ED Course/Re-evaluation: I had an extensive conversation with the patient and her . The primary problem today is anxiety, uncontrolled with Xanax. Abdominal exam is benign and I do not feel that further emergency department testing is indicated. Patient feels that Ativan will help her symptoms. Ativan 1 mg orally given and a prescription was written. The patient was strongly encouraged to follow up with primary care physician and her psychiatrist. Differential Diagnosis: Differential diagnosis includes though it is not limited to appendicitis, cholecystitis, diverticulitis, pyelonephritis, bowel perforation, small bowel obstruction. - Data Points Laboratory Results: 10/27/17 14:52 Urine Color YELLOW Urine Appearance CLEAR Urine pH 7.0 (5.0-7.5) Ur Specific [place] 1.006 (1.002-1.030) Urine Protein NEGATIVE (NEGATIVE) Urine Ketones NEGATIVE (NEGATIVE) Urine Blood NEGATIVE (NEGATIVE) Urine Nitrate NEGATIVE (NEGATIVE) Urine Bilirubin NEGATIVE (NEGATIVE) Urine Urobilinogen NEGATIVE EU EU (0.2-1.0) Ur Leukocyte Esterase TRACE H (NEGATIVE) Urine RBC NONE SEEN /hpf /hpf (0-3) Urine WBC 1-3 /hpf /hpf (0-3) Ur Epithelial Cells TRACE /lpf /lpf (NONE-1+) Urine Mucus TRACE /lpf /lpf (NONE-1+) Urine Glucose NEGATIVE (NEGATIVE) Medications Given: Discontinued Medications Lorazepam (Ativan) 1 mg PO EDNOW ONE Stop: 10/27/17 16:06 Last Admin: 10/27/17 16:14 Dose: 1 mg Departure - Departure Disposition: Home, Routine, Self-Care Clinical Impression: Anxiety Abdominal pain Qualifiers: Abdominal location: generalized Qualified Code(s): R10.84 - Generalized abdominal pain Condition: Good Instructions: Lorazepam (By mouth), Acute Abdominal Pain (ED), Anxiety (ED) Additional Instructions: Clear liquids for 24 hr. Advance diet as tolerated. Dinorah for worsening symptoms or any concerns. Referrals: Kathia Cardozo MD [Primary Care Provider] - 1-2 days without fail Prescriptions: LORazepam [Ativan (RX)] 1 mg PO Q12 PRN #6 tab PRN Reason: Anxiety
[2017-10-27 16:16] VITALS: BP 120/76
== END 2017-10-27 16:17 | disposition home or self-care (01) ==
DX: F41.9 Anxiety disorder, unspecified (principal); R10.84 Generalized abdominal pain

== ENCOUNTER 2018-09-18 21:10 | Inpatient (IN) | payer OTHER, BC ==
--- NOTE | 2018-09-18 21:51 | EDPHY ---
General - History Smoking Status: Never smoked Time Seen by Provider: 09/18/18 21:37 Narrative: CLINICAL IMPRESSION: Anxiety with agitation, acute alcohol intoxication, left ulnar fracture ASSESSMENT/PLAN: Patient is a 68-year-old female with a significant history of anxiety, depression and personality disorder who presents to the emergency department with complaints of left forearm pain. also very concerned about patient 's underlying psychiatric wellness, increased alcohol use and medication use and feels that she is not safe at home. Patient is afebrile and nontoxic- appearing, she is very agitated on exam. In regards to her forearm injury, forearm x-ray revealed distal ulna fracture. There was no evidence of open fracture, dislocation, compartment syndrome or neurovascular compromise. She was placed in a sugar-tong splint and CMS remained intact post splint placement. In regards to her mental health, the patient was placed on an MIH secondary to being gravely disabled. Baseline behavioral health laboratory studies were obtained. CBC and metabolic panel were unremarkable- no evidence of infectious process or metabolic abnormality. She did not hit her head, I have a very low suspicion for significant head injury, CVA or ICH. Urinalysis with no evidence of infection. Alcohol was over 100, U tox was positive for opiates, benzodiazepines and marijuana. The patient required multiple medications secondary to her agitation. Formal behavioral health evaluation is still pending at this time. The patient remained hemodynamically stable prior to transfer of care, Dr. Villarreal will resume care of this patient at this time. DIFFERENTIAL DX: Differential diagnosis including but not limited to and in no particular order alcohol intoxication, medication noncompliance, medication side effect, depression and illicit drug use. ED PROCEDURES: Procedure: Splint placement. A sugar-tong splint was applied. After application of the splint I returned and re-examined the patient. The splint was adequately immobilizing the joint and distal to the splint the patient's circulation and sensation was intact. ED COURSE: 8: Xray reviewed with Dr. Reyes 2229: Patient's is very concerned about her mental health well being, she has made comments of suicidal ideation and her anxiety has been escalating over the last month. Patient with admission last December to behavioral health. MIH placed. 2321: Patient's agitation is escalating, Haldol ordered. She was placed on a new client banking services clerk. 2321: Patient continues to be very agitated threatening to leave the department. Additional Haldol given. 2332: Patient continues to be agitated, Ativan ordered. 0025: Patient is much more calm, she is complaining of left forearm pain. Tylenol ordered. 0059: Patient is agitated again, trying to crawl out of bed. 1 mg of Ativan ordered. 0130: Patient still agitated, she is pacing around the room. Will obtain baseline ECG prior to administering additional medications. 0158: Dr. Villarreal he will resume care of this patient at this time CHIEF COMPLAINT: Left forearm pain HPI: Patient is a 68-year-old female with a significant history of depression, severe anxiety, history of alcohol abuse, benzodiazepine abuse and personality disorder who presents to the emergency department with acute intoxication and fall complaining of left arm pain. History obtained mostly from patient's who appears appropriately concerned. The reports patient has a longstanding history of depression and severe anxiety, has previously required psychiatric admission. He brings her to the emergency department this evening after she sustained a fall complaining of left forearm pain. He also expresses concern about her escalating agitation associated to her anxiety as well as recent increased alcohol use in combination with her regular medications. Patient was additionally recently diagnosed with a cracked tooth and given Drifton for pain management. Her reports that she took her regular daily medications as well as Drifton, had a glass of wine this evening and went to bed. She was feeling mildly agitated when in bed, when she got out of bed she tripped causing her to fall against her dresser. He reports when she fell he heard a "crack" when her arm hit the dresser. This was witnessed by her , he denies her hitting her head, there was no loss of consciousness. He subsequently gave her another Drifton as she appeared to be in significant pain. The patient is alert to time and place, she is a very difficult historian and does not wish to answer any of my questions. She is not able to recall how she fell this evening. discloses that she is followed by Dr. Portillo Coyne in [place] for her psychiatric care, there have been no recent changes in her medication. He does express concern that she has been threatening suicide at home, no attempts have been made recently. He is concerned that over the past month her agitation has been escalating. They recently lost a very close friend whose was yesterday. She asks for alcohol daily, he gives her wind that is water down. He reports that he does monitor her medication administration. PMH: Depression, anxiety, personality disorder, alcohol use disorder, possible benzodiazepine use disorder Family History: Not contributory Social History: Denies cigarette smoking, frequent alcohol REVIEW OF SYSTEMS: Limited secondary to refusing to answer questions. PHYSICAL EXAM: General Appearance: Elderly, cachectic, uncomfortable appearing- frequently complaining of pain in her left forearm. HENT: Normocephalic, atraumatic. Bilateral external ears are normal. Bilateral tympanic membranes are normal with pearly bliss reflex. Nares are clear, mucosa is pink. Oropharynx is clear however mucosa is very dry, uvula is midline. There is no tonsillar enlargement or exudate. The dentition is normal. Eyes: PERRLA, EOMI. Conjunctiva pink, no pallor or injection. Neck: Supple, nontender, no lymphadenopathy, no midline pain, FROM. Respiratory: There are no retractions, lungs are clear to auscultation. Cardiac: Regular rate and rhythm, no murmurs or gallops. Gastrointestinal: Abdomen is soft, nontender, bowel sounds normal, no masses/ hernia, no rigidity, guarding or focal peritoneal findings. Neurological: Alert to time and place. Sensory and motor exam grossly normal. Patient ambulates with normal gait, independently and without difficulty. Skin: Warm, dry, no rashes. Upper Extremities: Right upper extremity is unremarkable. Intact distal pulses , Full range of motion intact, no tenderness, no ecchymosis or edema. Left forearm with ecchymosis along the mid distal ulna with associated tenderness to palpation. Mild deformity on my exam. Forearm compartment is soft. Left elbow is nontender with full range of motion, left wrist is nontender with full range of motion. The radial, ulnar and median nerves were all tested. Radial nerve: Patient is able to extend wrist and fingers of the local joints. Ulnar nerve: Patient is able to abduct all fingers. Median nerve patient is able to oppose thumb to pinky. Radial pulse 2 +. Two point discrimination is intact distally. Lower Extremities: Intact distal pulses, No edema, No tenderness, No cyanosis, full range of motion intact, No calf tenderness bilaterally. Psychiatric: Refusing to answer questions, agitated. MEDICAL DECISION MAKING: Patient was seen by myself and Dr. Reyes. Diagnosis: Left ulna fracture, anxiety with agitation. Summary: Please see Assessment and Plan. In reviewing patient's records, she has been admitted to our psychiatric care on 2 different occasions. Last December of 2017. Patient was admitted after she was placed on an M1 hold where she was extremely agitated similar to her presentation today. Clinical lab tests: ordered / reviewed. Independent visualization of images, tracing, or specimens: Yes. Decision to obtain medical records or history from someone other than the patient: Yes, Review / Summarize previous medical records: Yes Discussed patient with another provider: Yes, Dr. Reyes, Dr. Villarreal Patient Progress: Stable, dispo pending. (Natalie Nicole) 0 700: Patient is signed out to me at change of shift by Dr. Villarreal. I evaluated the patient at change of shift. She was in the room pacing about. Dr. Villarreal the wrote for additional medication to help the patient's symptoms. I reviewed the patient's laboratory studies. Patient is mildly hyponatremic with a sodium 132. I reviewed her previous laboratory values. Her sodium had been previously 128. Patient is unsure why she has had low sodium in the past. The patient was feeling agitated. The Versed did not improve her symptoms. She was given Zyprexa 5 mg IV. Repeat laboratory studies were ordered. CBC and chemistry are unchanged. EMTALA completed. (Becky Diaz) Medical Decision Makin:38 a.m.- Patient stable at this time, resting comfortably. Blood pressure is elevated. We will monitor this. Case will be signed out to the oncoming provider Dr. Diaz at 7:00 a.m.. 7:07 a.m.- Patient is now outside of her room pacing and appears anxious. She says she feels terrible and that her nerves are acting up. She says when she was last in the hospital she was given morphine and that helped a lot so she is asking for that now. She says that her abdomen hurts though reports that it hurts periodically, once every few weeks. She has been able to eat and drink without difficulty. I have examined her abdomen in it is benign. I will give her a dose of Tylenol for pain and Versed 2 mg IV for her agitation as she has had minimal effect with Haldol which she has already received here in the emergency department. (Dimple Villarreal) PHYSICIAN DOCUMENTATION: The patient was evaluated and managed by the Physician Survey Crew Chief and myself. I have reviewed the chart and agree with the findings and plan of care as documented. In addition, I examined the patient myself at 2236. History confirmed as fall injuring her arm, seems appropriately concerned. Physical findings as follows: Patient is ambulatory without ataxia, is moderately agitated. is concerned that due to her mental illness and alcohol and medications she is no longer safe at home is gravely disabled. She is placed on a mental incapacity hold here, screening labs drawn, plan for psychiatric evaluation. She was admitted to the inpatient mental Health for back in December of 2017 for these complaints and concerns including depression, anxiety disorder, personality disorder with histrionic traits. Unable to cooperate with further medical assessment, rolling around in the bed and walking around agitated and intermittently screaming, not improved with reassurance, was given IV haloperidol 5 mg for sedation to facilitate appropriate medical treatment. She Signed out to Cherelle at 2330. I am the secondary supervising physician. (Shay Reyes) - Objective Vital Signs: Initial Vital Signs Temperature (C) 36.7 C 09/18/18 21:11 Heart Rate 93 09/18/18 21:11 Respiratory Rate 18 09/18/18 21:11 Blood Pressure 153/94 H 09/18/18 21:11 O2 Sat (%) 100 09/18/18 21:11 O2 Delivery Mode Room Air Allergies/Adverse Reactions: promethazine [From Phenergan] Allergy (Verified 10/27/17 14:46) Sulfa (Sulfonamide Antibiotics) Allergy (Verified 10/27/17 14:46) Home Medications: Medication Instructions Recorded Nortriptyline HCl [Pamelor 50 mg 50 mg PO HS 08/08/16 (*)] Zolpidem Tartrate [Ambien] 15 mg PO HS 08/08/16 Multivitamins [Multivitamin (*)] 1 each PO DAILY tab 06/24/17 QUEtiapine FUMARATE [Seroquel 25 25 mg PO Q4 PRN #30 tab 06/24/17 mg (*)] Acetaminophen [Tylenol 325mg (*)] 650 mg PO Q4HRS PRN tab 12/14/17 Gabapentin [Neurontin] 800 mg PO TID #90 tablet 12/14/17 LORazepam [Ativan (*)] 1 mg PO BID tab 12/14/17 Nortriptyline HCl [Pamelor 50 mg 50 mg PO HS cap 12/14/17 (*)] Polyethylene Glycol 3350 [Miralax 17 gm PO DAILY pkt 12/14/17 17 gm (*)] Zolpidem Tartrate [Ambien 5MG (*)] 15 mg PO HS tab 12/14/17 traZODone [traZODONE 100MG (*)] 100 mg PO HS tab 12/14/17 traZODone [traZODone 150MG (*)] 300 mg PO HS tab 12/14/17 Keflex 09/18/18 Laboratory Results: Laboratory Results 09/19/18 09:55 09/19/18 09:55 09/19/18 09/19/18 09/18/18 09:55 09:55 22:57 WBC 5.17 10^3/uL 10^3/uL (3.80-9.50) RBC 3.59 10^6/uL L 10^6/uL (4.18-5.33) Hgb 12.1 g/dL L g/dL (12.6-16.3) Hct 33.8 % L % (38.0-47.0) MCV 94.2 fL fL (81.5-99.8) MCH 33.7 pg pg (27.9-34.1) MCHC 35.8 g/dL g/dL (32.4-36.7) RDW 11.9 % % (11.5-15.2) Plt Count 211 10^3/uL 10^3/uL (150-400) MPV 9.7 fL fL (8.7-11.7) Neut % (Auto) 69.2 % % (39.3-74.2) Lymph % (Auto) 18.2 % % (15.0-45.0) [place] % (Auto) 10.4 % % (4.5-13.0) Eos % (Auto) 1.4 % % (0.6-7.6) Baso % (Auto) 0.6 % % (0.3-1.7) Nucleat RBC Rel Count 0.0 % % (0.0-0.2) Absolute Neuts (auto) 3.58 10^3/uL 10^3/uL (1.70-6.50) Absolute Lymphs (auto) 0.94 10^3/uL L 10^3/uL (1.00-3.00) Absolute Monos (auto) 0.54 10^3/uL 10^3/uL (0.30-0.80) Absolute Eos (auto) 0.07 10^3/uL 10^3/uL (0.03-0.40) Absolute Basos (auto) 0.03 10^3/uL 10^3/uL (0.02-0.10) Absolute Nucleated RBC 0.00 10^3/uL 10^3/uL (0-0.01) Immature Gran % 0.2 % % (0.0-1.1) Immature Gran # 0.01 10^3/uL 10^3/uL (0.00-0.10) Sodium 132 mEq/L L mEq/L 132 mEq/L L mEq/L (135-145) (135-145) Potassium 3.8 mEq/L mEq/L 4.0 mEq/L mEq/L (3.5-5.2) (3.5-5.2) Chloride 104 mEq/L mEq/L 96 mEq/L L mEq/L (97-110) (97-110) Carbon Dioxide 20 mEq/l L mEq/l 22 mEq/l mEq/l (22-31) (22-31) Anion Gap 8 mEq/L mEq/L 14 mEq/L mEq/L (6-14) (6-14) BUN 12 mg/dL mg/dL 13 mg/dL mg/dL (7-23) (7-23) Creatinine 0.8 mg/dL mg/dL 0.9 mg/dL mg/dL (0.6-1.0) (0.6-1.0) Estimated GFR > 60 > 60 Glucose 139 mg/dL H mg/dL 87 mg/dL mg/dL (70-100) (70-100) Calcium 9.2 mg/dL mg/dL 9.5 mg/dL mg/dL (8.5-10.4) (8.5-10.4) Urine Color Urine Appearance Urine pH Ur Specific [place] Urine Protein Urine Ketones Urine Blood Urine Nitrate Urine Bilirubin Urine Urobilinogen Ur Leukocyte Esterase Urine Glucose Urine Opiates Screen Urine Barbiturates Ur Phencyclidine Scrn Ur Amphetamine Screen U Benzodiazepines Scrn Urine Cocaine Screen U Marijuana (THC) Screen Ethyl Alcohol 110 mg/dL H mg/dL (0-10) 09/18/18 09/18/18 09/18/18 22:57 22:50 22:50 WBC 7.91 10^3/uL 10^3/uL (3.80-9.50) RBC 4.00 10^6/uL L 10^6/uL (4.18-5.33) Hgb 13.3 g/dL g/dL (12.6-16.3) Hct 37.8 % L % (38.0-47.0) MCV 94.5 fL fL (81.5-99.8) MCH 33.3 pg pg (27.9-34.1) MCHC 35.2 g/dL g/dL (32.4-36.7) RDW 12.0 % % (11.5-15.2) Plt Count 229 10^3/uL 10^3/uL (150-400) MPV 9.4 fL fL (8.7-11.7) Neut % (Auto) 75.8 % H % (39.3-74.2) Lymph % (Auto) 14.9 % L % (15.0-45.0) [place] % (Auto) 7.3 % % (4.5-13.0) Eos % (Auto) 1.1 % % (0.6-7.6) Baso % (Auto) 0.8 % % (0.3-1.7) Nucleat RBC Rel Count 0.0 % % (0.0-0.2) Absolute Neuts (auto) 5.99 10^3/uL 10^3/uL (1.70-6.50) Absolute Lymphs (auto) 1.18 10^3/uL 10^3/uL (1.00-3.00) Absolute Monos (auto) 0.58 10^3/uL 10^3/uL (0.30-0.80) Absolute Eos (auto) 0.09 10^3/uL 10^3/uL (0.03-0.40) Absolute Basos (auto) 0.06 10^3/uL 10^3/uL (0.02-0.10) Absolute Nucleated RBC 0.00 10^3/uL 10^3/uL (0-0.01) Immature Gran % 0.1 % % (0.0-1.1) Immature Gran # 0.01 10^3/uL 10^3/uL (0.00-0.10) Sodium Potassium Chloride Carbon Dioxide Anion Gap BUN Creatinine Estimated GFR Glucose Calcium Urine Color PALE YELLOW Urine Appearance CLEAR Urine pH 6.0 (5.0-7.5) Ur Specific [place] 1.008 (1.002-1.030) Urine Protein NEGATIVE (NEGATIVE) Urine Ketones NEGATIVE (NEGATIVE) Urine Blood NEGATIVE (NEGATIVE) Urine Nitrate NEGATIVE (NEGATIVE) Urine Bilirubin NEGATIVE (NEGATIVE) Urine Urobilinogen NEGATIVE EU EU (0.2-1.0) Ur Leukocyte Esterase NEGATIVE (NEGATIVE) Urine Glucose NEGATIVE (NEGATIVE) Urine Opiates Screen NON-NEGATIVE H (NEGATIVE) Urine Barbiturates NEGATIVE (NEGATIVE) Ur Phencyclidine Scrn NEGATIVE (NEGATIVE) Ur Amphetamine Screen NEGATIVE (NEGATIVE) U Benzodiazepines Scrn NON-NEGATIVE H (NEGATIVE) Urine Cocaine Screen NEGATIVE (NEGATIVE) U Marijuana (THC) Screen NON-NEGATIVE H (NEGATIVE) Ethyl Alcohol Medications Given: Cephalexin HCl (Keflex) 500 mg PO Q6 KIZZY PRN Reason: Protocol Stop: 09/24/18 06:59 Last Admin: 09/19/18 07:24 Dose: 500 mg Discontinued Medications Acetaminophen (Tylenol) 650 mg PO EDNOW ONE Stop: 09/19/18 00:26 Last Admin: 09/19/18 00:27 Dose: 650 mg Acetaminophen (Tylenol) 650 mg PO EDNOW ONE Stop: 09/19/18 07:07 Last Admin: 09/19/18 07:24 Dose: 650 mg Diphenhydramine HCl (Benadryl Injection) 50 mg IVP EDNOW ONE Stop: 09/19/18 02:44 Last Admin: 09/19/18 02:45 Dose: 50 mg Haloperidol Lactate (Haldol Injection) 5 mg IM EDNOW ONE Stop: 09/18/18 23:07 Last Admin: 09/18/18 23:13 Dose: 5 mg Haloperidol Lactate (Haldol Injection) 5 mg IVP EDNOW ONE Stop: 09/18/18 23:22 Last Admin: 09/18/18 23:27 Dose: 5 mg Haloperidol Lactate (Haldol Injection) 10 mg IVP EDNOW ONE Stop: 09/19/18 02:43 Last Admin: 09/19/18 02:48 Dose: 10 mg Lorazepam (Ativan Injection) 2 mg IVP EDNOW ONE Stop: 09/18/18 23:33 Last Admin: 09/18/18 23:51 Dose: 2 mg Lorazepam (Ativan Injection) 1 mg IVP ONCE ONE Stop: 09/19/18 01:00 Last Admin: 09/19/18 01:01 Dose: 1 mg Midazolam HCl (Versed) 2 mg IVP EDNOW ONE Stop: 09/19/18 07:07 Last Admin: 09/19/18 07:24 Dose: 2 mg Olanzapine (Zyprexa Injection) 5 mg IV EDNOW ONE Stop: 09/19/18 08:43 Last Admin: 09/19/18 08:47 Dose: 5 mg Ziprasidone (Geodon) 20 mg IM EDNOW ONE Stop: 09/19/18 01:59 Last Admin: 09/19/18 02:08 Dose: 20 mg Departure - Departure Clinical Impression: Anxiety and depression Alcohol intoxication Qualifiers: Complication of substance-induced condition: uncomplicated Qualified Code(s): F10.920 - Alcohol use, unspecified with intoxication, uncomplicated Ulnar shaft fracture Qualifiers: Encounter type: initial encounter Fracture type: closed Fracture morphology: transverse Fracture alignment: nondisplaced Laterality: left Qualified Code(s): S52.225A - Nondisplaced transverse fracture of shaft of left ulna, initial encounter for closed fracture Condition: Good Referrals: NONE *PRIMARY CARE P,. [Primary Care Provider] - As per Instructions
[2018-09-18 23:05] LABS: PLATELET COUNT 229 10^3/uL (150-400)
[2018-09-18] MEDS ORDERED: HALOPERIDOL LACT 5 MG/ML INJ ONE (23:06)
[2018-09-18] MEDS ORDERED: HALOPERIDOL LACT 5 MG/ML INJ IM ONE (23:06)
[2018-09-18] MEDS ORDERED: HALOPERIDOL LACT 5 MG/ML INJ IVP ONE (23:21)
[2018-09-18] MEDS ORDERED: LORazepam 2 MG/ML INJ IVP ONE (23:32)
[2018-09-18] MEDS ORDERED: LORazepam 2 MG/ML INJ ONE (23:33)
[2018-09-19] MEDS ORDERED: ACETAMINOPHEN 325 MG TAB PO ONE ×2 (00:25→07:06)
[2018-09-19] MEDS ORDERED: LORazepam 2 MG/ML INJ IVP ONE (00:59)
[2018-09-19] MEDS ORDERED: ZIPRASIDONE MESYLATE 20 MG VIAL IM ONE (01:58)
[2018-09-19] MEDS ORDERED: HALOPERIDOL LACT 5 MG/ML INJ IVP ONE (02:42)
[2018-09-19] MEDS ORDERED: HALOPERIDOL LACT 5 MG/ML INJ ONE (02:50)
[2018-09-19] MEDS ORDERED: MIDAZOLAM 2 MG/2 ML VIAL IVP ONE (07:06)
[2018-09-19] MEDS: CEPHALEXIN 500 MG CAP PO SCH ×3 (07:24→18:45)
[2018-09-19] MEDS ORDERED: OLANZapine 10 MG/2 ML VIAL ONE (08:39)
[2018-09-19] MEDS ORDERED: OLANZapine 10 MG/2 ML VIAL IV ONE (08:42)
[2018-09-19 10:13] LABS: PLATELET COUNT 211 10^3/uL (150-400)
--- NOTE | 2018-09-19 11:00 | ASMTTLCEVL ---
TLC Evaluation - Basic Information Evaluation Start Date and 09/19/2018 07:00 AM Time Hospital Status Answers: Voluntary Patient statement Notes: "Oh yes"...when asked if she recalled the evnets of last night. Beyond this her words were indiscernable. Narrative Notes: Pt is a 68 y/o female with a significant hx of anxiety, depression and personality disorder who presented to the ED with c/o left forearm pain. Oniel physician's report, " also very concerned about patient's underlying psychiatric wellness, increased alcohol use and feels that she is not safe at home...Patient is very agitated on exam". Her reported to the ED physician that patient was recently diagnosed with a cracked tooth and given [place] for pain management. Last evening she took her regular daily medications as well as [place], had a glass of wine and went to bed. She was feeling mildly agitated while in bed, when she got out of bed she tripped causing her to fall against her dresser. He heard a crack when her arm hit the dresser. This was witnessed by her , he denies her hitting her head, there was no loss of consciousness.In regards to her forearm pain, an x-ray did reveal a distal unlna fracture. She was placed in a sugar-tong splint. Pt's BAL was 110 and she was positive for marijuana, opiates and benzodiazepines. Her reports that she has been threatening suicide at home, no attempts have been made recently. He is concerned that over the past month her agitation has been escalating. They recently lost a very close friend whose was yesterday. She asks for alcohol daily; he gives her wine that is watered down. He monitors her medication administration. Pt was initially very agitated in the ED. She repeatedly yell for "more meds..." bounced her bottom on and threw her body back and forth on the mattress. She attempted to pull out her IV. Throughout the night she was multiple doses of Haldol and Ativan with a Benadryl injection at 2:44am. At 6:38 she was noted by the ED physician to be resting comfortably. A t7:07 the ED physician noted "patient is now outside of her room pacing and appears anxious. She says that she feels terrible and that her nerves are acting up. She says when she was last in the hospital she was given morphine and that helped a lot so she is asking for that now. She is complaining that her abdomen hurts....I have examined her abdomen and it is benign. I will give her a dose of Tylenol for her pain and Versed 2mg IV for her agitation as she has had minimal effect with Haldol...". During assessment with [facility] clinician pt always attempted to be polite and cooperative. She vascillated between being able to give succinct and coherent responses and responding to questions which possibly have caused anxiety with jagged arm movements and incoherent sounds. She was able to state that her agitation level last night was a "10" and today is a "9" (pt appeared much almer than she presented last night) .She remained reclined. Her affect was one of angst and appeared fixed. She denied any suicidality. She shared that her pain level was low. Her was present and appeared very concerned and actively trying to meet her needs. His inquiries at times appeared to cause agitation (as the clinician's had) and he seemed unaware of this impact. In re to her mental health, pt's reported that she has been making suicidal comments and over the last month has had escalating anxiety.the patient was placed on a [facility] secondary to being gravely disabled. 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 He stated that it was "painful" for him to speak of those times. Prior hospitalizations Notes: [facility] in 2014 [facility] 06/19/17 - 06/24/17 Per D/C Summary, pt was admitted due to "being incontrollable at home. She was pacing, wailing, shaking and could not calm herself....out-patient providers...were concerned for her wellbeing because of the severity of her symptoms and her inability to control it as an out-patient". [facility] 12/10/17 - 12/14/17 Per D/C Summary, pt "presentes in a decompensated, agitated state an thought to be unmanageable in the community by her family...she had threatened suicide at home. She also had cut herself superficially with a knife". Treatment Responses Notes: Per D/C Summary 06/24/17, she was cooperative and interactive. She appeared to efinitely invest in her treatment and was very grateful for the intervention...stable. Her affect was euthymic, stable and appropriate and she was displaying no severe anxiety. She was voicing no thoughts of suicide". Per D/C Summary 12/14/17, dramatic and rather disruptive behaviors ...diminished after the first 24 hours in the hospital.. Her affect was euthymic, stable and she was much calmer. There was no agitation noted. She was voicing no thoughts of suicide". History of violence Notes: No known hx of violence. Therapist: Maddison Conn Psychiatrist: Dr Coyne Medications (name, dosage, route, freq uency) Notes: Nortriptyline 50mg at hs Ambien 15 mg at hs Seroquel 25mg, Q4 PRN Neurontin 800mg, TID Ativan 1mg, BID Trazodone 400mg at hs Multivitamins 1 each Tylenol 650mg, Q4hrs Miralax 17gm daily Allergies/Reaction Notes: Promethazine Sulfa Sleep Notes: Poor, becomes restless Appetite Notes: Poor. During a previous admission a longstanding eating sidorder was suspected. In addition pt has had chronic stomach issues with 2 surgeries to remove colon. Medical/Surgical history Notes: Significant for chronic and severe bowel complaints. She has had several "blockages". She has had 2 surgeries where colon was removed. She has hypertension, hx of bilateral humeral fractures and other fractures from falling. She presently has a distal ulna fracture that she incurred last evening.. She has atypical restles legs syndrome. Substance use history (frequency, intensity, his tory, duration) Notes: Pt 's BAL was 110. She was positive for opiates and benzodiazepaines; she has been prescribed both. She was positive for marijuana. Per , Pt :demands" alcohol and presently he gives her 2 1/2 glasses of diluted wine a day; one before dinner and one before bed. This past week she's had several undiluted glasses of wine at special events. he has observed a correlation between the intake in wine and her agitation and believes that she should not have any. Family composition Notes: She has a and 2 adult children, Need for family Answers: Yes participation in patient's care Family psychiatric/substance abuse history Notes: Unknown Developmental history Notes: The pt moved from [place] to [place] 34 years ago to be near she and her 's 2 adult children who live in the [place] area. ZULEIKA shares that she was socially active in [place] which included volunteering. He reports she is very isolated here. She does go to the recreation center twice a week and swims; a senior compaion takes her, but notes that her broken arm will now interfere with that. Pt has claimed in the past that her is verbally abusive towards her. Per [facility] D/C Summary, during pt's second hospitalization, ZUELIKA "began calling the unit, quite agitated and verbally abusive towards the nurses". He was not reported to behave this way with psychiatrist. Abuse concerns Answers: None Marital status/children Notes: Pt is and has 2 adult children. Living situation Notes: Pt lives with her . Pt's ihas prostate cancer and her children have voiced concerns that he is becoming less able to mange their mother's needs. During the last hospitalization at [facility] they spoke of looking into Assisted Living for their mother. Sexual history/orientation Notes: Heterosexual. Peer support/family strengths Notes: Adult children Education level/history Notes: Unknown Work history Notes: Volunteered in past Notes: No hx. Legal Notes: No legal issues. Jainism/Spiritual Notes: Unknown Leisure Notes: Pt enjoys swimming and in the past has enjoyed volunteering. Collateral Notes: Past [facility] records - Connor, . Patient's strengths Answers: Intelligent (Please select at least TWO strengths): Supportive Family TLC Evaluation - Mental Status Exam Appearance: Answers: Appropriate Eye Contact: Answers: Avoiding Good/Direct Mood: Answers: Labile Affect: Answers: Anxious Congruent w/ Mood Constricted Labile Behavior: Answers: Cooperative Erratic Restless Speech: Answers: Relevant Illogical Coherent Incoherent Delayed Nonsensical Thought Process: Answers: Oriented Alert Insight: Answers: Poor Judgement: Answers: Poor Depression Answers: Diminished Interest Signs/Symptoms: Diminished Pleasure Psychomotor Agitation Withdrawn Anxiety Signs/Symptoms Answers: Generalized Anxiety Hallucinations: Answers: None Current Stage of Change Answers: Precontemplation Pt reported to have Answers: Yes suicidal/self-injuring ideation/behavior? Pt reported to be making Answers: Yes suicidal/self-injuring threats? Pt reported to have Answers: No aggression/assault ideation/behavior? Pt reported to be making Answers: No aggression/assault threats? Pt exhibits inability to Answers: Yes care for self/grave disability? Ideation/behavior is Answers: Yes chronic? Patient has a specific Answers: No plan? Pt has access to means to Answers: No execute the plan? Ideation involves Answers: No serious/lethal intent? Ideation has Answers: No delusional/hallucinatory content? History of Answers: Yes suicidal/self-injuring ideation, behavior, or threats? History of Answers: No aggressive/assaultive ideation, behavior, or threats? History of serious Answers: No physical harm to self/others while in treatment setting? TLC Evaluation - Suicide/Homicide Risk Suicide Risk Factors: Answers: < 20 or > 40 Years of Age Agitation Anxiety/Panic, Severe Impulsivity Homicide/violence risk Answers: None factors: Current Suicidal Answers: No Ideation? Current Suicide Ideation Pt denies any current. reports recent Frequency: threats of suicide. Current Suicidal Ideation Answers: Yes in the Past 48 Hours? Current Suicidal Ideation Answers: Yes in the Past Month? Current Suicidal Answers: No Ideation, Worst Ever? Suicide Internal Answers: Absence of Psychosis Protective Factors: Suicide External Answers: Positive Therapeutic Protective Factors: Relationships Other Notes: Support from Ranking of patient's Answers: Low suicidal risk: Ranking of patient's Answers: Low homicidal risk: [facility] Evaluation - Wrap-up BDI Total Score: Pt unable to complete BDI Question #2 Score: Pt unable to complete AXIS I Diagnosis (include DSM-V and ICD-10 codes), must also be entered in [employer], which is the source of truth. Notes: Unspecified Anxiety Disorder 300.00 (F41.9) Unspecified Depressive Disorder 311 (F32.9) Alcohol Use Disorder, severe 303.90 (F10.20 In consultation with [facility] ED physician,Dr Yates and on-call psychiatrist,Dr Atkins, both concurred that Pt does appear to meet 27-65 criteria requiring psychiatric hospitalization as Pt does appear to be an imminent risk of harm due to grave disability due to a mental illness condition. Pt was read the Patient Rights and Responsibilities Statement on 09/19/2018 at 10:30am. She signed it; original placed in chart and copy given to pt. Evaluation End Date and 09/19/2018 10:00 AM Time (HH:TERI): Date Signed: 09/19/2018 10:59 AM Electronically Signed By:Arleen Mcclellan
--- NOTE | 2018-09-19 11:00 | ASMTTCLDSP ---
[facility] Discharge Disposition Disposition: Answers: Admit Discharge Concerns/Recommendations: Notes: In consultation with [facility] ED physician,Dr Yates and on-call psychiatrist,Dr Atkins, both concurred that Pt does appear to meet 27-65 criteria requiring psychiatric hospitalization as Pt does appear to be an imminent risk of harm due to grave disability due to a mental illness condition. Pt was read the Patient Rights and Responsibilities Statement on 09/19/2018 at 10:30am. She signed it; original placed in chart and copy given to pt. Was patient given the Answers: Yes Inpatient Behavioral Health Prohibited Belongings List while in the ED? For inpatient Dr Atkins admission, the following psychiatrist agreed to accept patient for admission to Behavioral Health ([facility]): Type of Hold: Answers: M1/72-hour Hold Hold initiated by: Answers: Other Notes: [facility] clinician Date Signed: 09/19/2018 10:59 AM Electronically Signed By:Arleen Mcclellan
[2018-09-19] MEDS ORDERED: NICOTINE POLACRILEX 2 MG GUM B PRN (13:51)
[2018-09-19] MEDS ORDERED: MAG HYDROX/AL HYDROX/SIMETH 30 ML UDCUP PO PRN (13:51)
[2018-09-19] MEDS ORDERED: ACETAMINOPHEN 325 MG TAB PO PRN (13:51)
[2018-09-19] MEDS ORDERED: MAGNESIUM HYDROXIDE 30 ML UDCUP PO PRN (13:51)
[2018-09-19] MEDS: LORazepam 0.5 MG TAB PO PRN ×2 (14:06→20:09)
[2018-09-19] MEDS: IBUPROFEN 600 MG TAB PO PRN (14:06)
[2018-09-19] MEDS: GABAPENTIN 400 MG CAP PO SCH ×2 (14:06→20:42)
[2018-09-19] MEDS: QUEtiapine FUMARATE 50 MG TAB PO SCH ×2 (14:07→20:42)
[2018-09-19] MEDS: SERTRALINE HCL 100 MG TAB PO SCH (14:07)
[2018-09-19] MEDS: traMADol 50 MG TAB PO PRN (14:07)
[2018-09-19] MEDS: LORazepam 1 MG TAB PO SCH ×2 (15:32→22:00)
--- NOTE | 2018-09-19 15:52 | PDMN ---
Medical Necessity Medical necessity: [id number] Anxiety Disorders, Adult: Inpatient Care, 2 days: 68 w/ unspecified anxiety do, unspecified depressive d/o and severe etoh use d/o , on M1 hod risk of harm due to grave disability due to mental illness condition. Admit IP status BEH unit.
--- NOTE | 2018-09-19 19:47 | CPEKG ---
Test Reason : OPEN Blood Pressure : / mmHG Vent. Rate : 074 BPM Atrial Rate : 075 BPM P-R Int : 153 ms QRS Dur : 082 ms QT Int : 390 ms P-R-T Axes : 074 054 058 degrees QTc Int : 433 ms Sinus rhythm Probable left atrial enlargement Confirmed by Shay Reyes ([id number]) on 09/19/2018 7:46:25 PM Referred By: Dimple Villarreal Confirmed By:Shay Reyes
[2018-09-19] MEDS: NORTRIPTYLINE HCL 50 MG CAP PO SCH (20:42)
[2018-09-19] MEDS: traZODone 100 MG TAB PO SCH (20:42)
[2018-09-19] MEDS: ZOLPIDEM TARTRATE 5 MG TAB PO SCH (20:42)
[2018-09-20] MEDS: CEPHALEXIN 500 MG CAP PO SCH ×5 (00:44→23:45)
[2018-09-20] MEDS: traMADol 50 MG TAB PO PRN ×2 (04:30→12:43)
[2018-09-20] MEDS: QUEtiapine FUMARATE 50 MG TAB PO SCH ×4 (05:22→21:21)
--- NOTE | 2018-09-20 07:50 | ASMTBHMTP ---
Master Treatment Plan Master Treatment Plan Answers: Impaired Reality for: Date: 09/20/2018 Diagnosis on Admission: Unspecified Anxiety Disorder 300.00 (F41.9) Expected length of stay: 3-5 Reason for admission: Notes: Pt is a 68 y/o female with a significant hx of anxiety, depression and personality disorder who presented to the ED with c/o left forearm pain. PerED physician's report, " also very concerned about patient's underlying psychiatric wellness, increased alcohol use and feels that she is not safe at home...Patient is very agitated on exam". Her reported to the ED physician that patient was recently diagnosed with a cracked tooth and given [place] for pain management. Last evening she took her regular daily medications as well as [place], had a glass of wine and went to bed. She was feeling mildly agitated while in bed, when she got out of bed she tripped causing her to fall against her dresser. He heard a crack when her arm hit the dresser. This was witnessed by her , he denies her hitting her head, there was no loss of consciousness.In regards to her forearm pain, an x-ray did reveal a distal unlna fracture. She was placed in a sugar-tong splint. Pt's BAL was 110 and she was positive for marijuana, opiates and benzodiazepines. Patient's stated presenting problems: Notes: "I was off medications for 5 days". Patient's goals for treatment: Notes: "Stabilize on medications". Patient's strengths: Notes: "I have really high IQ. I can move things with my mind". Identify supports outside of hospital: Notes: UTC Discharge criteria: Notes: Ct. will demonstrate more stable mood by discharge. Initial disposition plan/considerations: Notes: Mood will return to baseline and ct. will be able to discharge home safely. Master Treatment Plan Required Signatures Psychiatrist signature: Answers: Psychiatrist: RN on-shift signature: Answers: RN: Patient signature: Answers: Patient: Date Signed: 09/20/2018 07:49 AM Electronically Signed By:Agata Paula
[2018-09-20] MEDS: LORazepam 1 MG TAB PO SCH ×2 (08:30→21:21)
[2018-09-20] MEDS: IBUPROFEN 600 MG TAB PO PRN (08:34)
[2018-09-20] MEDS: GABAPENTIN 400 MG CAP PO SCH ×3 (08:34→21:21)
[2018-09-20] MEDS: SERTRALINE HCL 100 MG TAB PO SCH (08:37)
--- NOTE | 2018-09-20 09:13 | ASMTCMCOM ---
CM Note CM Note Notes: CC met with ct. to develop MTP. Ct. was cooperative. seemed somewhat disorganized. Parts of MTP note in system were placed in error. The following is the correct information: Ct. reported that she was admitted to the unit because "I was getting really sick and losing a lot of weight and I thought a place like this would help me". Ct. goals for treatment: "relax, talk to other people". Ct. strength: "I'm really kind and caring". Ct. support: My son and my daughter. I like being with my children and grandchild". Ct. signed JONATHAN for her prescriber and her . Date Signed: 09/20/2018 09:12 AM Electronically Signed By:Agata Paula
--- NOTE | 2018-09-20 18:55 | PDGENHP ---
History and Physical History and Physical: CONSULTATION HISTORY AND PHYSICAL FOR BEHAVIORAL HEALTH UNIT PATIENT I SPENT A TOTAL OF 95 MIN AT THE BEDSIDE WITH THE PATIENT AND IN A SEPARATE VISIT WITH THE PATIENT AND TODAY HISTORY: ROS: A comprehensive 10 system review revealed no other significant findings PAST MEDICAL HISTORY: FAMILY MEDICAL HISTORY: SOCIAL HISTORY: MEDICATIONS: The patients list has been reconciled by our clinical pharmacist in the EMR. I have reviewed the list and ordered appropriate medicines. PHYSICAL EXAMINATION: Vital Signs: Radio/Tv Technician: Examination: General: alert, oriented, good mentation, relaxed Skin: warm, dry, good color, no rash HEENT: normal Neck: no mass or jvd Resps: relaxed Lungs: clear breath sounds Heart: regular, no murmur Abdomen: soft, nondistended, nontender, +BS, no mass Upper Extremities: normal Lower Extremities: no edema, warm No Bleeding or bruising Neurologic: normal speech/language, normal transplant registered nurse, no focal weakness IV site: looks normal LABORATORY DATA: RADIOLOGY STUDIES: 12 LEAD EKG: ASSESSMENT: * Severe depression and anxiety disorder, acute on chronic * Acute alcohol intoxication * Significant memory loss clearly in part due to medication and alcohol, but I believe there is likely an underlying degree of dementia; this is hard to assess clearly at this moment as she is fairly depressed but the memory deficit is chronic and worsening over time * Fall with acute distal shaft ulnar fracture left arm with some displacement * Osteoporosis * Insomnia; use of prescribed Ambien as well as benzodiazepine, alcohol, marijuana to try and help with sleep * Interrelational difficulties with This patient's issues are complex with overlapping features in terms of all of her presenting symptoms as well as her treatments and her abuse of alcohol and use of marijuana. At this point my concerns are that * Despite multiple inpatient Behavioral Health Unit stays and ongoing medication her anxiety and depression remain uncontrolled, * These issues are driving behavioral issues that are maladaptive * Her memory issues are aggravated by medications and alcohol * She now has her 1st injury fall and evidence of osteoporosis on x-ray, and her alcohol and use of benzodiazepines and Ambien leave her at markedly increased risk of further injury falls * Her inter relational difficulties with her clearly are promoting stress and depression PLANS: * In very long discussions with the patient and her today I discussed that she should completely stop using alcohol and they both agree with that ( getting that to translate to success for the patient at home will be harder) * Their children and other relatives need to buy into the idea that she should not drink any alcohol * Her medication and therapy approaches over time showed if possible the in the direction of reducing reliance on benzodiazepines in order to help with her memory and fall risk issues * The should strongly consider engaging in couples counseling that will be a goal directed approach at helping them each recognize the others distress during conversations * I will ordered TSH B12 and RPR to assess memory issues
--- NOTE | 2018-09-20 19:22 | BAPA ---
[f rep st] ADMISSION PSYCHIATRIC ASSESSMENT DATE OF SERVICE: 09/20/2018 REASON FOR ADMISSION: The patient is a 68-year-old female, known to me from 2 previous hos pitalizations in 2018. She has a history of a strange combination of severe anxiety and mood problem s, as well as substance abuse. She has presented several times in the past just completely out of co ntrol behaviorally, pacing, screaming and flailing about. This will typically be triggered by some c onflict with her with whom she lives and the conflict is typically about her drinking. The e pisodes will last days until she finally calms and then she will do well for a while. She was aden mullery admitted in June of 2017, for 5 days and then again in December of 2017, at that time for 4 day s. In this instance, she apparently was in her usual state of mental health with no crises and she w ent to lunch with her family for Mother's Day. At lunch, she states she drank 1-1/3 glasses of wine and by her 's description "totally lost it." At the emergency department several hours later, her blood alcohol was 110. With this in mind, she certainly drank more than 1-1/3 glasses of wine. Her states that she did take 1 [place] with that and he believes that was the destabilizing fa ctor. Her urine drug screen was positive for marijuana, benzos and opiates. In the emergency department, the patient was very agitated, pacing, required intramuscular Zyprexa an d Haldol, as well as benzodiazepines. She did not calm appreciably and her was concerned joey t he could not take her home. He states that prior to coming to the emergency department, he had bee n at home with her, trying to get her to go to bed and that she came out of her room over 40 times be fore he thought he should take her to the hospital. She was admitted for further observation due to her highly agitated state. Today, she is calm and cooperative, is walking about the milieu with no d ifficulties and is able to talk with me individually, with the treatment team in treatment planning m eeting and then with me and her in a family meeting later without difficulty. She, at some p oints, claims amnesia for the events and then other times states that she simply does not know what h appened. She is not forthcoming about the amount of alcohol she may have consumed. She states she b elieves she is back to her baseline and wants to continue the medicines as they were previously presc ribed by Molly Stephenson. She identifies no specific factors leading up to this except that she goe s back to a familiar story that it was the move to [place] from [place] that permanently caused her m ental health problems. PAST PSYCHIATRIC HISTORY: Significant for longstanding depression and anxiety. The patient has take n benzodiazepines for some time. She has also taken antidepressants, but in the past. She is ilyaen niki managed by PREMA Rizzo and Dr. Portillo Coyne's office and has not had any recent medicati on changes per her and her 's report. She had the 2 hospitalizations outlined above previousl y here. She has threatened suicide numerous times, though I am unaware of a previous attempt. ALLERGIES: Promethazine and sulfa. CURRENT MEDICATIONS: Keflex 500 mg q.6 for a tooth infection, Neurontin 800 mg t.i.d., nortriptyline 50 mg q.h.s., quetiapine 50 mg q.i.d., sertraline 100 mg daily, tramadol 50 mg every 6 hours as need ed, trazodone 400 mg h.s., and Ambien 10 mg at bedtime. PAST MEDICAL HISTORY: Significant for DICTATION ENDS HERE. /[id number]/MODL
[2018-09-20] MEDS: ZOLPIDEM TARTRATE 5 MG TAB PO SCH (21:21)
[2018-09-20] MEDS: NORTRIPTYLINE HCL 50 MG CAP PO SCH (21:21)
[2018-09-20] MEDS: traZODone 100 MG TAB PO SCH (21:21)
[2018-09-21] MEDS: QUEtiapine FUMARATE 50 MG TAB PO SCH ×2 (05:52→12:31)
[2018-09-21] MEDS: CEPHALEXIN 500 MG CAP PO SCH ×2 (05:52→12:31)
[2018-09-21] MEDS: traMADol 50 MG TAB PO PRN ×2 (05:55→12:44)
[2018-09-21 06:45] VITALS: BP 179/89
[2018-09-21] MEDS: SERTRALINE HCL 100 MG TAB PO SCH (08:39)
[2018-09-21] MEDS: GABAPENTIN 400 MG CAP PO SCH (08:39)
[2018-09-21] MEDS: LORazepam 1 MG TAB PO SCH (08:39)
--- NOTE | 2018-09-21 13:50 | ASMTBHDC ---
Notes Note: Notes: Pt and her met with Dr Brown where it was planned that she would be d/bruce today. Pt regularly sees Dr Coyne and Maddison Conn on an out-pt basis. Due to the short stay appointments were not able to be made. Pt and her agreed to make these appointments with her stating he would make them upon arrival at home. Pt reported feeling better and able to be safe within the community. Date Signed: 09/21/2018 01:48 PM Electronically Signed By:Arleen Mcclellan
--- NOTE | 2018-09-21 18:31 | BDS ---
[f rep st] BEHAVIORAL HEALTH DISCHARGE SUMMARY REASON FOR ADMISSION: Patient is a 68-year-old female, known to me from previous admission s. She has a history of severe though atypical anxiety and substance abuse. [facility] with her after she was highly agitated and in an intoxicated state at home and fell an d broke her arm. She was evaluated in the emergency department for her fracture, but then thought to be gravely disabled and admitted for further evaluation. Full description of the of the events prec [facility] admission can be found in her admission history dated 09/20/2018. ADMITTING DIAGNOSES: Unspecified anxiety disorder; alcohol use disorder; severe unspecified personal ity disorder; marital conflict. ADMITTING PHYSICAL EXAMINATION: Performed by Dr. Marcus Minor revealed overall no acute findings. ADMISSION LABORATORY: H and H were low at 12.1 and 33.8. Serum chemistries revealed a sodium low at 132, nonfasting glucose up at 139. Liver function is normal. A1c is normal at 5.1. TSH was high a t 5.4. Urinalysis showed no evidence of infection. Urine drug screen is positive for opiates, benzo diazepines, marijuana, and alcohol on admission was 110. HOSPITAL COURSE: Patient was admitted to the [facility] on a M1 hold. She was initially quite out of control in the ER, as we have seen her before, restless, screaming, grunting, moaning and refusing to follow instructions. She was given IM Zyprexa and Haldol, as well as lorazepam that were not very effective in curbing these behaviors. Ultimately, she was admitted t o the [facility] inpatient unit where she did calm and slept. When I saw her on the first day of admission, she was back to what I would estimate to be her normal baseline. She was anx ious though appropriate. Her was present and we talked for at least 45 minutes. He rehashed the exact same issues that we talked about at a previous admission, including the patient being sad after having moved from [place] 8 years ago, being isolated, not being able to drive, feeling lik e she is being controlled and abusing alcohol and prescription medications every chance she gets. Ted ga voiced his ongoing frustration that she becomes very angry with him if he will not give her alc ohol or extra doses of her medications. She told the story that she had 1-1/3 glasses of wine at a M other's Day dinner prior to this most recent decompensation, but 5 hours after dinner, her blood alco hol level was still 110. She adamantly denies knowing how this could happen. I saw her and her husb and on the 2nd full day of admission as well in a family meeting and discussed this issue specificall y, and she avoided the answer. stated that he has found alcohol bottles numerous times hidde n in her closet and that she refused to allow him entry into her closet. She denies drinking at home . Patient's hospitalization was uncomplicated. She essentially had reconstituted by the morning of the first day and I felt I had no reason to keep her in the hospital after the M1 hold , as she h ad maintained more than 24 hours of stability under our supervision. She and her both suppor rachael her discharge and I felt this was appropriate. We continued her medications as prior to admissio n throughout her stay. CONDITION AT DISCHARGE: Stable. Her affect was euthymic, stable and appropriate. She was displayin g no evidence of psychosis. She was alert and oriented to person, place, time, and situation and the re was no evidence of delirium or intoxication. DISCHARGE MEDICATIONS: Same as on admission, which included: 1. Ativan 1 mg p.o. twice daily. 2. Nortriptyline 50 mg p.o. at bedtime. 3. Keflex 500 mg p.o. 4 times daily for tooth infection. 4. Zoloft 100 mg daily. 5. Gabapentin 800 mg twice daily. 6. Trazodone 400 mg at bedtime. 7. Ibuprofen 600 mg q.6 hours p.r.n. pain. 8. Seroquel 50 mg p.o. 4 times daily. 9. Tramadol 50 mg q.6 hours p.r.n. 10. Ambien 10 mg p.o. at bedtime. The patient was given written instructions by me that she can liberalize the gabapentin by a dose a d ay and/or the Seroquel by 1 or 2 doses a day if this helps her avoid taking extra lorazepam. DISCHARGE DIAGNOSES: 1. Unspecified anxiety disorder. 2. Alcohol use disorder, severe. 3. Left ulnar fracture. 4. Unspecified personality disorder. 5. Hypertension. 6. Unspecified depressive disorder. DISPOSITION: Patient left the hospital with her to return home. FOLLOWUP: With [facility] for ongoing medication management. They state that they have an exist ing appointment next week. I will also communicate with Ms. ventura about these events. She is also instructed to follow up with her outpatient orthopedic surgeon, Dr. Krzysztof Marquez in [facility] for treatment of her fracture. I have also strongly urged them to talk with [facility] about following up with marital counselisiah vale. They state they have not done this in some time. ATTITUDE AT DISCHARGE: Positive. CODE STATUS: Patient was a full code throughout her stay. PENDING LABS OR STUDIES AT TIME OF DISCHARGE: None. The patient was discharged at the expiration of her M1 hold. The patient was given written instructions as to dates and times of her appointments. The patient was administered screenings for her alcohol use and stated that she did not desire specific alcohol treatment, but that she would simple stop drinking. I reflected to her that this is what she has said on every previous encounter and she states that this time she means it. She states, however, she wants to continue to take the Indica which she takes at bedtime for sleep. I indicated to her that the fewer substances she had in her brain the better at this point, and that she should have an overall plan to attempt to limit the se over time. /[id number]/MODL
== END 2018-09-21 13:10 | disposition home or self-care (01) | DRG 884 ==
LOC: BBEH 09-19 11:40
PROVIDERS: ADMIT Psychiatry & Neurology Psychiatry; ATTEND Psychiatry & Neurology Psychiatry
DX: R45.1 Restlessness and agitation (principal); F10.229 Alcohol dependence with intoxication, unspecified; F41.9 Anxiety disorder, unspecified; F32.9 Major depressive disorder, single episode, unspecified; S52.602A Unspecified fracture of lower end of left ulna, initial encounter for closed fracture; W06.XXXA Fall from bed, initial encounter; Y92.013 Bedroom of single-family (private) house as the place of occurrence of the external cause; F60.9 Personality disorder, unspecified; I10 Essential (primary) hypertension
CPT/HCPCS: 80305; 96374; G0480; J1200; J1630; J2060; J2250; J3486